=== PATIENT | male | born 1960 | race Caucasian/White ===

== ENCOUNTER → 2019-05-30 08:49 | Outpatient (BNVA) | payer MEDICARE, OTHER, SELFPAY | PROVIDERS: Family Provider Family Medicine; PCP Family Medicine; Visit Provider Anesthesiology | DX: M54.16 Radiculopathy, lumbar region (principal); M51.36 Other intervertebral disc degeneration, lumbar region; M79.651 Pain in right thigh; M79.652 Pain in left thigh; M54.2 Cervicalgia; Z79.891 Long term (current) use of opiate analgesic | CPT/HCPCS: 99214 ==

== ENCOUNTER 2019-07-04 08:01 | Outpatient (CLI) | payer MEDICARE, OTHER, SELFPAY ==
--- NOTE | 2019-07-04 08:20 | ECG_ITS ---
NAME OF STUDY: EXERCISE SESTAMIBI STRESS TEST INDICATION: Chest Pain, EXERCISE TREADMILL STRESS ORDERING PHYSICIAN: Lanie CLINICAL INFORMATION: Chest pain INTERPRETATION: 1. The patient exercised for 7 minutes and 48 seconds on a [place] protocol. He reached a maximum heart rate of 146 beats per minute, which is 90 % of his maximum predicted heart rate. The test was stopped due to achieving the desired heart rate. 2. The baseline electrocardiogram reveals sinus rhythm and is a normal tracing. 3. With exercise, there were no ST segment changes to suggest ischemia. 4. The resting blood pressure was 127/76. The maximum blood pressure was 182/77. 5. At maximum exercise, the patient achieved 7.9 METs with a double product of 217. 6. The patient experienced no chest pain or arrhythmias during the examination. CONCLUSION: 1. Normal exercise treadmill test. 2. Average exercise capacity for age. 3. Normal blood pressure response to exercise. 4. Nuclear imaging to follow Electronically Signed On 07-08-2019 18:30:46 CDT by Dex Dela Cruz M.D. [id number]
--- NOTE | 2019-07-04 08:21 | NMCV_ITS ---
NM marci perf SPECT r/s* [id number] José Antonio Acosta Age: 58 Gender: M : 1960 Exam Date: 07/04/2019 08:21 Ordering Phys: Dex Dela Cruz MD ([email or web address]) Technologist: CHAU Allred Exam Location: [facility] Indications: CHEST PAIN STRESS TEST Please see separate stress test report in [facility] for full findings IMAGE PROTOCOL Rest/Stress 1 Exercise Day Radiopharmaceutical Dose (mCi) Administration Site Administered by Rest: Tc-99m 10.9 IV CHAU Aponte Sestamibi Stress:Tc-99m 32.6 IV CHAU Aponte Sestamibi Rest: 04-Jul-2019 60 Discovery 630 Stress: 04-Jul-2019 30 Discovery 630 Radiopharmaceutical was injected at 86 % maximum heart rate. Images obtained in supine and prone position. SPECT RESULTS Technical Quality: Excellent Raw Data Analysis: Normal Image Corrections: No attenuation or motion correction applied Summed Stress Score: 0 Summed Rest Score: 1 Summed Difference Score: 0 PERFUSION FINDINGS SPECT images demonstrate homogeneous tracer distribution throughout the myocardium. FUNCTIONAL RESULTS (calculated via Gated SPECT) Stress Image LV EF (%): 74 Stress EDV (mL):99 TID: 1.02 Stress ESV (mL):26 FUNCTIONAL FINDINGS: The left ventricle is normal in size. Transient Ischemia Dilatation of 1. There is normal left ventricular systolic function. The left ventricular ejection fraction is normal with a value of 74%. There is normal left ventricular wall thickening. Normal end-diastolic and end-systolic volumes. IMPRESSIONS 1. Myocardial perfusion imaging is normal. 2. Overall left ventricular systolic function is normal without regional wall motion abnormalities. 3. The left ventricular ejection fraction is normal with a value of 74%. 4. This study suggests a low likelihood of angiographically significant coronary artery disease. 5. No prior similar studies to compare. Sophie Granado MD (Electronically Signed) Final Date: 07 July 2019 11:22 S
[2019-07-04 08:22] VITALS: BMI 27.1
[2019-07-04 10:07] VITALS: BP 160/76; PULSE 92
== END 2019-07-04 08:02 | disposition home or self-care (01) ==
LOC: CDL 08:02
PROVIDERS: Family Provider Family Medicine; PCP Family Medicine; Visit Provider Internal Medicine Cardiovascular Disease
DX: R07.9 Chest pain, unspecified (principal)
CPT/HCPCS: 78452; 93017; A9500

== ENCOUNTER 2019-10-08 06:00 | Outpatient (RCR) | payer MEDICARE, OTHER, SELFPAY | END 2019-10-28 23:59 | disposition home or self-care (01) | LOC: SPT 06:00 | PROVIDERS: PCP Family Medicine; Referring Provider Family Medicine; Visit Provider Family Medicine | DX: M25.561 Pain in right knee (principal) | CPT/HCPCS: 97110; 97161 ==

== ENCOUNTER → 2019-10-10 09:54 | Outpatient (BNVA) | payer MEDICARE, OTHER, SELFPAY | PROVIDERS: PCP Family Medicine; Visit Provider Anesthesiology | DX: M51.36 Other intervertebral disc degeneration, lumbar region (principal); M54.16 Radiculopathy, lumbar region; M54.2 Cervicalgia; Z79.891 Long term (current) use of opiate analgesic | CPT/HCPCS: 99214 ==

== ENCOUNTER → 2019-12-11 09:23 | Outpatient (BNVA) | payer MEDICARE, OTHER, SELFPAY | PROVIDERS: PCP Family Medicine; Visit Provider Anesthesiology | DX: M54.41 Lumbago with sciatica, right side (principal); M54.42 Lumbago with sciatica, left side; M51.36 Other intervertebral disc degeneration, lumbar region; M54.16 Radiculopathy, lumbar region; M54.2 Cervicalgia; M25.561 Pain in right knee; M25.562 Pain in left knee; Z79.891 Long term (current) use of opiate analgesic | CPT/HCPCS: 99214 ==

== ENCOUNTER 2019-12-22 17:40 | Emergency (ER) | payer MEDICARE, OTHER, SELFPAY ==
[2019-12-22 17:41] VITALS: BP 105/69; PULSE 66; RESP 18; TEMP 36.6; O2SAT 91; BMI 25.8
--- NOTE | 2019-12-22 17:57 | XRR_ITS ---
PROCEDURE INFORMATION: Exam: XR Chest, 1 View Exam date and time: 12/22/2019 6:16 PM Age: 59 years old Clinical indication: Chest pain; Type not specified; Additional info: Cp x 2 hours TECHNIQUE: Imaging protocol: XR of the chest Views: 1 view. Other technique: Frontal portable upright view of the chest. COMPARISON: CR Chest 1 [place] [id number] 05/29/2018 10:35 AM FINDINGS: Lungs: The lungs are clear bilaterally. The pulmonary vasculature is normal. Pleural space: No pleural effusion. No pneumothorax. Heart/Mediastinum: The heart is normal in size and contour. Mediastinum: Stable. Vasculature: Mild aortic arch atherosclerotic calcification without ectasia. Bones/joints: Healed bilateral rib fractures, stable. XR/XR chest 1V portable [id number] IMPRESSION: No acute cardiopulmonary abnormality identified.
--- NOTE | 2019-12-22 17:58 | ECG_ITS ---
[facility] Test Date: 2019-12-22 Pat Name: José Antonio Acsota Department: Room: Gender: Male Manager Bilingual: : 1960 Requested By: Gene Bellamy Order Number: [id number] Caro MD: Valerio Emmanuel M.D. Measurements Intervals [place] Rate: 62 P: 70 MD: 174 QRS: 41 QRSD: 85 T: 26 QT: 416 QTc: 423 Interpretive Statements SINUS RHYTHM Compared to ECG 05/29/2018 10:16:57 No significant changes Electronically Signed On 12-23-2019 17:24:59 CDT by Valerio Emmanuel M.D. [id number]
--- NOTE | 2019-12-22 18:04 | US_ITS ---
WS: [id number] ULTRASOUND ABDOMEN LIMITED CLINICAL INFORMATION: abd pain COMPARISON: None. FINDINGS: Liver Size: Normal. Craniocaudal length: 10.0 cm. Echogenicity: Normal. Surface nodularity: None. Mass (size and location): None. Bile ducts Intrahepatic ducts: Normal. Common bile duct diameter: 0.3 cm. Gallbladder Normal. Gallstones: None. Gallbladder sludge: None. Gallbladder wall thickening: None. Pericholecystic fluid: None. Sonographic Mcclure sign: Absent. Pancreas Normal as visualized. Right kidney: Normal. Hydronephrosis: None. Size: 10.9 cm x 5.3 cm x 5.2 cm. Abdominal aorta and IVC Visualized portions are normal. Ascites: None. US/US gall bladder [id number] IMPRESSION: Normal ultrasound
--- NOTE | 2019-12-22 18:05 | ED_ITS ---
HPI - Abdominal Pain General: Chief Complaint: Abdominal Pain Stated Complaint: ABDOMINAL AND CHEST PAIN Time Seen by Provider: 12/22/19 17:42 Source: patient and EMS Mode of arrival: EMS Limitations: no limitations History of Present Illness: HPI narrative: 59-year-old male he states he had eaten a dessert that set out for quite a while today started having epigastric abdominal pain is felt quite bloated. He states pain was severe in nature and rated it a 8 out of 10. He states he is also had issues with his gallbladder and was scheduled to have ultrasound but got canceled due to COVID. He denies any fevers. He states he did have one slight period of chest pain that was only for seconds. He feels improved after Zofran. Associated Symptoms: Reports nausea; Denies chills, dysuria and fever(s) Review of Systems Const: Denies: fever(s), chills, body aches or change in appetite Eyes: Denies: blurry vision or eye discomfort ENMT: Denies: throat pain or dental pain Card: Denies: chest pain Resp: Denies: dyspnea GI: Reports: abdominal pain and nausea : Denies: dysuria Musc: Denies: neck pain or back pain Skin/Breast: Denies: rash Neuro: Denies: headache(s) Psych: Denies: depression Jerson/Lymph: Denies: easy bruising All/Imm: Denies: urticaria PFSH ED PFSH: Medical History (Updated 12/22/19 @ 18:46 by Gene Bellamy MD) CAD (coronary artery disease) DDD (degenerative disc disease), lumbar Dyslipidemia Encounter for long-term use of opiate analgesic Knee pain, bilateral Lumbar radiculitis Lumbar spine pain Neck pain Opioid contract exists Surgical History S/P knee surgery right x2 S/P shoulder surgery left x2 Family History Other CAD (coronary artery disease) Social History Smoking and tobacco status: former smoker Second hand smoke exposure: No Alcohol intake: former Lives independently: Yes Marital status: service: No Current occupational status: disabled History of recent travel: No Current gender identity: Male Katty/Yazdanism: Voodoo Physical Exam Const: COMMON NORMALS: no acute distress, patient oriented x3 and healthy a ppearing HENMT: COMMON NORMALS: normocephalic and atraumatic HEAD & SCALP: normocephalic and atraumatic Eye: COMMON NORMALS: Equal, round and reactive pupils present and EOMs intact bilaterally PUPIL: Yes Equal, round and reactive pupils present Neck/C-Spine: COMMON NORMALS: full ROM and supple Chest: COMMONS NORMALS: normal inspection of the chest and normal palpation of entire chest wall Resp: COMMON NORMALS: normal respiratory effort, No retractions, No use of accessory muscles and clear to auscultation bilaterally AUSCULTATION: clear to auscultation bilaterally Cardio: COMMON NORMALS: regular rate, regular rhythm and No murmurs present (Cardio) RATE: regular rate RHYTHM: regular rhythm GI: COMMON NORMALS: Normal to inspection, nondistended, normoactive bowel sounds present, Soft to palpation, non-tender and no masses PALPATION: Yes Soft to palpation Extremity: COMMON NORMALS: normal to inspection and full ROM Neuro: COMMON NORMALS: patient oriented x3, moves all extremities and no focal motor deficits Psych: COMMON NORMALS: mental status grossly normal, Normal thought process present and cooperative THOUGHT PROCESS: Normal thought process present Skin: COMMON NORMALS: no rashes or lesions noted and no wounds GENERAL SKIN EXAM: no rashes or lesions noted Course Vital Signs: Vital signs: Vital Signs Temperature 97.8 F 12/22/19 17:41 Pulse Rate 66 12/22/19 17:41 Respiratory Rate 18 12/22/19 17:41 Blood Pressure 105/69 12/22/19 17:41 Pulse Oximetry 91 12/22/19 17:41 MDM - Abdominal Pain MDM Narrative: Medical decision making narrative: Patient presents abdominal pain is likely gastric or gas pains. After eating and his abdominal exam now is benign. Lab work here is normal and ultrasound is normal we will start him on Bentyl and he is to return if worsening. Lab Data: Labs: Lab Results 12/22/19 12/22/19 12/22/19 Range/Units 17:20 17:20 17:20 WBC 7.2 (4.0-10.0) 10^3/ uL RBC 4.75 (4.1-5.3) 10^6/u L Hgb 13.2 (11.7-16.6) g/dL Hct 42.7 (42.0-52.0) % MCV 89.9 (80-94) fL MCH 27.8 L (28.0-34.0) pg MCHC 30.9 (30.0-36.0) g/dL RDW 13.7 (12.1-15.1) % Plt Count 305 (130-400) 10^3/c mm MPV 10.6 H (7.4-10.4) fL Neut % (Auto) 57.5 % Lymph % (Auto) 33.5 % Douglas % (Auto) 6.6 % Eos % (Auto) 2.1 % Baso % (Auto) 0.3 % Neut # (Auto) 4.15 (1.8-7.7) 10^3/u L Lymph # (Auto) 2.4 (0.8-4.8) 10^3/u L Douglas # (Auto) 0.5 (0.2-0.9) 10^3/u L Eos # (Auto) 0.2 (0.0-0.8) 10^3/u L Baso # (Auto) 0.0 (0.0-0.1) 10^3/u L Nucleated RBC % (a uto) 0 % Nucleated RBCs # 0.0 /100WBC Sodium 139 (136-145) mmol/L Potassium 3.9 (3.5-5.1) mmol/L Chloride 101 (98-107) mmol/L Carbon Dioxide 27 (22-29) mmol/L Anion Gap 14.9 (5-19) BUN 18 (6-20) mg/dL Creatinine 0.9 (0.7-1.2) mg/dL GFR Calculation 86.4 L (90-130) mL/min Glucose 126 H (65-115) mg/dL Calculated Osmolal ity 286 (285-295) mOsm/k g Calcium 8.9 (8.5-10.5) mg/dL Total Bilirubin 0.6 (0.15-1.2) mg/dL AST 24 (0-40) U/L ALT 21 (0-41) U/L Alkaline Phosphata se 124 (40-130) IU/L Troponin T Baselin e 6 (0-15) ng/L Total Protein 6.4 L (6.6-8.7) g/dL Albumin 4.1 (3.5-5.2) g/dL Globulin 2.3 (1.3-4.6) g/dL Lipase 24 (13-60) U/L Imaging Data ^: US: Attestation: I personally reviewed and interpreted this imaging study as follows: My impression: no acute abnormality EKG Data ^: EKG 1: Attestation: I personally reviewed and interpreted this EKG as follows: EKG interpretation date: 12/22/19 EKG interpretation time: 18:03 Interpretation: nsr hr [address] or t wave abnormalities qrs 85 qtc 421 Discharge Plan Discharge Patient Disposition: Home Clinical Impression: Abdominal pain Qualifiers: Abdominal location: epigastric Qualified Code(s): R10.13 - Epigastric pain Condition: Stable Prescriptions: New dicyclomine 20 mg tablet 20 mg PO TID PRN (Reason: abdominal pain) Qty: 20 RF: 0 ondansetron 4 mg tablet,disintegrating 4 mg PO Q6H PRN (Reason: nausea and vomiting) Qty: 14 RF: 0 No Action atorvastatin 40 mg tablet 40 mg PO QDAY RF: 0 metoprolol tartrate 25 mg tablet 12.5 mg PO BID RF: 0 nitroglycerin [Nitrostat] 0.4 mg tablet, sublingual 0.4 mg SUBLINGUAL Q5M PRNRF: 0 isosorbide mononitrate 30 mg tablet extended release 24 hr 30 mg PO QAM RF: 0 ibuprofen 200 mg capsule 200 mg PO Q6H PRNRF: 0 diazepam 5 mg tablet 5 mg PO TID PRNRF: 0 trazodone 50 mg tablet 50 mg PO QDAY RF: 0 aspirin 325 mg tablet 325 mg PO QDAY RF: 0 pantoprazole 40 mg tablet,delayed release (DR/EC) 40 mg PO QDAY RF: 0 sucralfate 1 gram tablet 1 gm PO DAILY PRNRF: 0 methadone 10 mg tablet 20 mg PO Q8H 30 Days Qty: 180 RF: 0 methadone 10 mg tablet 20 mg PO Q8H 30 Days Qty: 180 RF: 0 oxycodone 10 mg tablet 10 mg PO TID PRN (Reason: pain) 30 Days Qty: 90 RF: 0 oxycodone 10 mg tablet 10 mg PO TID PRN (Reason: pain) 30 Days Qty: 90 RF: 0 Discharge Orders: Discharge Order (Routine); Ordered 12/22/19 Ordered By: Gene Bellamy Referrals: Keya Ayala MD [Primary Care Provider] - 1-3 days Discharge Diet: Advance as tolerated Discharge Activity: Resume usual activity Patient Instructions: Abdominal Pain (ED) Coding Level of Care Code ED Plater Supervisor for Chg Fwd Exam Comprehensive
[2019-12-22 18:06] LABS: Basophils % 0.3 %; Eosinophils # 0.2 10^3/uL (0.0-0.8); Eosinophils % 2.1 %; Hematocrit 42.7 % (42.0-52.0); Hemoglobin 13.2 g/dL (11.7-16.6); Lymphocytes # 2.4 10^3/uL (0.8-4.8); Lymphocytes % 33.5 %; Mean Corpuscular HGB Conc 30.9 g/dL (30.0-36.0); Mean Corpuscular Hemoglobin 27.8 pg (28.0-34.0); Mean Corpuscular Volume 89.9 fL (80-94); Mean Platelet Volume 10.6 fL (7.4-10.4); Monocytes # 0.5 10^3/uL (0.2-0.9); Monocytes % 6.6 %; Neutrophils # 4.15 10^3/uL (1.8-7.7); Neutrophils % 57.5 %; Nucleated Red Blood Cells % 0 %; Platelet Count 305 10^3/cmm (130-400); Red Blood Count 4.75 10^6/uL (4.1-5.3); Red Cell Distribution Width 13.7 % (12.1-15.1); White Blood Count 7.2 10^3/uL (4.0-10.0)
[2019-12-22 18:18] LABS: Alanine Aminotransferase 21 U/L (0-41); Albumin Level 4.1 g/dL (3.5-5.2); Alkaline Phosphatase 124 IU/L (40-130); Anion Gap 14.9 (5-19); Aspartate Amino Transferase 24 U/L (0-40); Blood Urea Nitrogen 18 mg/dL (6-20); Calcium 8.9 mg/dL (8.5-10.5); Carbon Dioxide 27 mmol/L (22-29); Chloride 101 mmol/L (98-107); Creatinine Clr Calc Pharmacy 92.7145; Globulin 2.3 g/dL (1.3-4.6); Glomerular Filtration Rate 86.4 mL/min (90-130); Glucose 126 mg/dL (65-115); Lipase 24 U/L (13-60); Osmolality Calculated 286 mOsm/kg (285-295); Potassium 3.9 mmol/L (3.5-5.1); Sodium 139 mmol/L (136-145); Total Bilirubin 0.6 mg/dL (0.15-1.2); Total Protein 6.4 g/dL (6.6-8.7)
[2019-12-22 18:19] LABS: Troponin(5th) Baseline 6 ng/L (0-15)
[2019-12-22] MEDS: sodium chloride 0.9% 1,000 ML 999 ML IV (18:45)
[2019-12-22 18:53] VITALS: BP 119/72; PULSE 67; RESP 18; O2SAT 95
== END 2019-12-22 18:54 | disposition home or self-care (01) ==
PROVIDERS: Emergency Provider Emergency Medicine; PCP Family Medicine
DX: R10.13 Epigastric pain (principal); Z79.82 Long term (current) use of aspirin; I25.10 Atherosclerotic heart disease of native coronary artery without angina pectoris; E78.5 Hyperlipidemia, unspecified; Z87.891 Personal history of nicotine dependence
CPT/HCPCS: 12345; 71045; 76705; 80053; 83690; 84484; 85025; 93005; 99281; 99283; J7030

== ENCOUNTER → 2019-12-25 07:53 | Outpatient (BNVA) | payer MEDICARE, OTHER, SELFPAY | PROVIDERS: PCP Family Medicine; Visit Provider Anesthesiology | DX: M25.561 Pain in right knee (principal); M25.562 Pain in left knee | CPT/HCPCS: 20610; 77002; 77003; J1030; J3490 ==

== ENCOUNTER 2020-02-02 15:59 | Emergency (ER) | payer MEDICARE, OTHER, SELFPAY ==
[2020-02-02 16:03] VITALS: BP 139/87; PULSE 62; RESP 18; TEMP 36.9; O2SAT 95; BMI 26.6
--- NOTE | 2020-02-02 16:09 | CTR_ITS ---
PROCEDURE INFORMATION: Exam: CT Head Without Contrast Exam date and time: 02/02/2020 4:16 PM Age: 59 years old Clinical indication: Injury or trauma; Other: Thrown from horse; Blunt trauma (contusions or hematomas) TECHNIQUE: Imaging protocol: Computed tomography of the head without contrast. Radiation optimization: All CT scans at this facility use at least one of these dose optimization techniques: automated exposure control; mA and/or kV adjustment per patient size (includes targeted exams where dose is matched to clinical indication); or iterative reconstruction. COMPARISON: CT head wo con* [id number] 07/18/2015 7:12 PM RADIATION DOSE METRICS: Total DLP (mGy-cm): 877.62 FINDINGS: Brain: Small amount of subarachnoid blood sulci of the superior right parietal lobe near the vertex. No abnormal attenuation in the brain parenchyma. No parenchymal hemorrhage. Cerebral ventricles: No ventriculomegaly. Bones/joints: Unremarkable. No acute fracture. Paranasal sinuses: The Circumferential mucosal thickening in the left maxillary sinus. The other sinuses are clear. Mastoid air cells: Visualized mastoid air cells are well aerated. Soft tissues: Unremarkable. CT/CT head wo con* [id number] IMPRESSION: 1. Small focus of subarachnoid hemorrhage in the superior right parietal region. This is consistent with trauma. 2. No fracture identified. Radiation Dose CTDIVOL = (mGy): DLP = 877.62 (mGy-cm)
--- NOTE | 2020-02-02 16:09 | CTR_ITS ---
PROCEDURE INFORMATION: Exam: CT Cervical Spine Without Contrast Exam date and time: 02/02/2020 4:16 PM Age: 59 years old Clinical indication: Injury or trauma; Other: Thrown from horse; Blunt trauma; Additional info: Fall, cerivcal spine point tenderness TECHNIQUE: Imaging protocol: Computed tomography images of the cervical spine without contrast. Radiation optimization: All CT scans at this facility use at least one of these dose optimization techniques: automated exposure control; mA and/or kV adjustment per patient size (includes targeted exams where dose is matched to clinical indication); or iterative reconstruction. COMPARISON: No relevant prior studies available. Attempts to retrieve the CT C-spine 07/29/2009 and MRI C-spine 12/05/2012 were unsuccessful. RADIATION DOSE METRICS: Total DLP (mGy-cm): 723.74 FINDINGS: Vertebrae: Leftward cervical curvature. There is mild anterior wedging of the C6 vertebral body. The other vertebral bodies maintain a normal stature. The facets are intact with mild degenerative changes. C2-C3: No significant disc protrusion. No severe spinal canal stenosis. No significant neural foraminal narrowing. C3-C4: No significant disc protrusion. No severe spinal canal stenosis. No significant neural foraminal narrowing. C4-C5: No significant disc protrusion. No severe spinal canal stenosis. No significant neural foraminal narrowing. C5-C6: No significant disc protrusion. No severe spinal canal stenosis. No significant neural foraminal narrowing. C6-C7: No significant disc protrusion. No severe spinal canal stenosis. No significant neural foraminal narrowing. C7-T1: No significant disc protrusion. No severe spinal canal stenosis. No significant neural foraminal narrowing. Soft tissues: The soft tissues are unremarkable. Specifically there are no soft tissue findings surrounding the C6 vertebral body. Lungs: Lung apices are normal. CT/CT cervical spin wo con* [id number] IMPRESSION: 1. No acute finding. 2. Mild anterior wedging of the C6 vertebral body is most likely a chronic finding. This is described on the MRI report 12/05/2012. Radiation Dose CTDIVOL = (mGy): DLP = 723.74 (mGy-cm)
--- NOTE | 2020-02-02 16:09 | XRR_ITS ---
PROCEDURE INFORMATION: Exam: XR Left Shoulder Exam date and time: 02/02/2020 5:08 PM Age: 59 years old Clinical indication: Injury or trauma; Other: Fall off horse; Blunt trauma (contusions or hematomas); Shoulder; Left; Injury date: 02/02/20; Prior surgery; Additional info: Left shoulder pain TECHNIQUE: Imaging protocol: XR Left shoulder. Views: 2 or more views. COMPARISON: CR Shoulder 2+ views LEFT* [id number] 01/09/2017 3:22 PM FINDINGS: Bones/joints: Old, healed left rib fractures. No acute fracture. No dislocation. Mild degenerative changes involving the acromioclavicular and glenohumeral joints. Soft tissues: No acute soft tissue abnormality. XR/XR shoulder LT min 2V* [id number] IMPRESSION: No acute osseous abnormality.
--- NOTE | 2020-02-02 16:09 | CTR_ITS ---
PROCEDURE INFORMATION: Exam: CT Chest Without Contrast Exam date and time: 02/02/2020 4:16 PM Age: 59 years old Clinical indication: Injury or trauma; Other: Thrown from horse; Generalized; Blunt trauma (contusions or hematomas); Prior surgery; Surgery type: Back TECHNIQUE: Imaging protocol: Computed tomography of the chest without contrast. Sagittal and coronal reformatted images were created and reviewed. Radiation optimization: All CT scans at this facility use at least one of these dose optimization techniques: automated exposure control; mA and/or kV adjustment per patient size (includes targeted exams where dose is matched to clinical indication); or iterative reconstruction. COMPARISON: CT chest wo con [id number] 07/18/2015 7:21:44 PM RADIATION DOSE METRICS: Total DLP (mGy-cm): 1274.06 FINDINGS: Limitations: Evaluation of the mediastinum and vasculature is limited without intravenous contrast. Lungs: Tracheobronchial structures are patent. Mild interstitial fibrotic changes in the periphery of the lungs, particularly the left upper lobe. These are mildly increased compared with the previous study. Patchy ground-glass opacification in the lateral right upper lobe. Calcified granuloma in the right lower lobe. Dependent atelectasis in the left lung. Pleural space: No pleural effusion. No pneumothorax. Heart: Stable mild enlargement of the heart. Moderate atherosclerotic calcification in the coronary arteries. Mediastinal space: No mediastinal hematoma. No pneumomediastinum. Small hiatal hernia. The esophagus is unremarkable. Aorta: Mild atherosclerotic changes in the visualized arteries. No evidence for aortic aneurysm. Other arteries: The pulmonary arteries are unremarkable. Lymph nodes: No lymphadenopathy. Partially calcified mediastinal and right hilar lymph nodes. Bones/joints: Stable old, healed fracture of the distal left clavicle. Stable old fractures of the right 2nd through 9th ribs and the left 2nd through 10th ribs. Multilevel degenerative changes of varying severity in the visualized spine. No acute fracture. Soft tissues: No acute abnormality in the extrathoracic soft tissues. No acute abnormality in the extrathoracic soft tissues. IMPRESSION: 1. Patchy ground-glass opacification in the lateral right upper lobe. The differential diagnosis includes pulmonary contusion versus the acute phase of interstitial lung disease. Recommend clinical correlation. 2. Mild interstitial fibrotic changes in the periphery of the lungs, particularly the left upper lobe. These are mildly increased compared with the previous study. 3. Small hiatal hernia. 4. Incidental/nonacute findings are listed in the report. PROCEDURE INFORMATION: Exam: CT Abdomen And Pelvis Without Contrast Exam date and time: 02/02/2020 4:16 PM Age: 59 years old Clinical indication: Injury or trauma; Other: Thrown from horse; Generalized; Blunt trauma (contusions or hematomas); Prior surgery; Surgery type: Back TECHNIQUE: Imaging protocol: Computed tomography of the abdomen and pelvis without contrast. Sagittal and coronal reformatted images were created and reviewed. Radiation optimization: All CT scans at this facility use at least one of these dose optimization techniques: automated exposure control; mA and/or kV adjustment per patient size (includes targeted exams where dose is matched to clinical indication); or iterative reconstruction. COMPARISON: CT chest wo con [id number] 07/18/2015 7:21:44 PM RADIATION DOSE METRICS: Total DLP (mGy-cm): 1274.06 FINDINGS: Limitations: Evaluation of solid organs and vasculature is limited without intravenous contrast. Liver: Stable simple cyst in the left lobe of the liver measuring 9.5 mm (series 3, image 16). Gallbladder and bile ducts: The gallbladder is unremarkable. No biliary ductal dilatation. Pancreas: Mild atrophy of the pancreatic parenchyma. No pancreatic ductal dilatation. Spleen: The spleen is unremarkable. Adrenals: The right and left adrenal glands are unremarkable. Kidneys and ureters: The right and left kidneys are unremarkable. The right and left ureters are unremarkable. Stomach and bowel: Small hiatal hernia. The stomach is collapsed, which can limit evaluation. No focal abnormality in the stomach otherwise. There are hyperdense foci in the 2nd portion of the duodenum. These may represent swallowed medications. No acute abnormality in the small bowel. Numerous diverticula in the sigmoid colon. No evidence for diverticulitis. Appendix: The appendix is visualized and is unremarkable. No findings to suggest acute appendicitis. Intraperitoneal space: No free intraperitoneal air. No ascites. No loculated fluid collections to suggest an abscess. Vasculature: Moderate atherosclerotic changes in the visualized arteries. No evidence for aortic aneurysm. Lymph nodes: No lymphadenopathy. Urinary bladder: Diffuse, mild wall thickening of the bladder. Reproductive: Nonspecific parenchymal calcifications in the prostate gland. Bones/joints: Moderate degenerative changes at both the right and left hips. There is partial fusion of the right and left sacroiliac joints, consistent with a remote episode of seronegative sacroiliitis versus sequela of degenerative change. Multilevel degenerative changes of varying severity in the visualized spine. Bone island in the proximal left femur. No acute fracture. Multilevel foraminal stenosis of varying severity in the lumbar spine. Soft tissues: No acute abnormality in the extra-abdominal soft tissues. CT/CT chest abd pel wo con IMPRESSION: 1. No evidence for acute traumatic injury in the abdomen or pelvis. 2. Diffuse, mild wall thickening of the bladder. In the correct clinical setting, this may suggest cystitis. Recommend correlation with laboratory findings. Alternatively, this may be secondary to chronic outlet obstruction. 3. Small hiatal hernia. 4. Sigmoid diverticulosis. No evidence for diverticulitis. 5. Incidental/nonacute findings are listed in the report. Radiation Dose CTDIVOL = (mGy): DLP = 1274.06~1274.06 (mGy-cm)
--- NOTE | 2020-02-02 16:14 | ED_ITS ---
HPI - Head Injury General: Chief complaint: Head Injury Stated complaint: HEAD, LEFT SHOULDER PAIN POST FALL FROM HORSE Time Seen by Provider: 02/02/20 16:09 History of Present Illness: HPI Narrative: 59-year-old male patient presents to the emergency department status post horse injury. He reports was trying to ride a horse and the horse threw him, bucked him off, he states landed on the ground, gravel road. He states did have positive loss of consciousness. EMS was called and transported him to the hospital. He is complaining of left side chest pain, left scapular pain and back pain. He reports pain in his left hip. Was able to stand and ambulate to the EMS cot. MD Complaint: head injury and fall Onset (ago): minute(s) (30) Arrival Conditions: C-spine immobilization present Mechanism of Injury: fall Place: home Loss of Consciousness: yes Location of injury: occipital Severity: moderate Severity scale (1-10): 6 Quality: stabbing and aching Other Injuries: chest (left) Context: on aspirin Associated symptoms: Reports neck pain and vertigo (with standing); Deny confusion, nausea or vomiting Review of Systems General: Reports: 10 or more systems reviewed and unremarkable except in HPI and below Const: Denies: fever(s), chills or diaphoresis Eyes: Denies: blurry vision or eye redness ENMT: Denies: throat pain, dental pain or disequilibrium Card: Denies: chest pain, palpitations or irregular heart rhythm Resp: Denies: dyspnea, productive cough, non-productive cough or wheezing GI: Denies: abdominal pain, nausea or vomiting : Denies: dysuria Musc: Reports: neck pain, back pain, extremity pain (left posterior shoulder) and limited range of motion (left shoulder) Skin/Breast: Denies: rash or pruritus Neuro: Reports: headache(s) and vertigo (with standing); Denies: confusion Jerson/Lymph: Denies: easy bruising PFS ED PFSH: Medical History (Updated 02/03/20 @ 12:26 by JANET Vieira) CAD (coronary artery disease) DDD (degenerative disc disease), lumbar Dyslipidemia Encounter for long-term use of opiate analgesic Knee pain, bilateral Lumbar radiculitis Lumbar spine pain Neck pain Opioid contract exists Surgical History S/P knee surgery right x2 S/P shoulder surgery left x2 Family History Other CAD (coronary artery disease) Social History Smoking and tobacco status: former smoker Second hand smoke exposure: No Alcohol intake: former Lives independently: Yes Marital status: service: No Current occupational status: disabled History of recent travel: No Current gender identity: Male Katty/Tenriism: Sikhism Physical Exam Const: COMMON NORMALS: patient oriented x3, healthy appearing and alert GENERAL APPEARANCE: cooperative and well hydrated NUTRITIONAL APPEARANCE: thin ORIENTATION/CONSCIOUSNESS: Yes awake, Yes oriented to person, Yes oriented to place and Yes oriented to time HENMT: COMMON NORMALS: normocephalic, TM's normal bilaterally, Normal external nose present, Normal nasal mucous membranes and turbinates present, moist oral mucous membranes and oropharynx normal HEAD & SCALP: normocephalic, contusion (Occipital, abrasion present) and scalp tenderness (To the abrasion) FACE & SINUS: normal facial exam, sinuses nontender and face symmetric NOSE: Normal external nose present and Normal nasal mucous membranes and turbinates present TYMPANIC MEMBRANE: TM's normal bilaterally MOUTH: Normal oral and palatal mucosa present THROAT: posterior oropharynx normal Eye: COMMON NORMALS: Equal, round and reactive pupils present and EOMs intact bilaterally GENERAL EYE: appearance normal, both eyes and all related st ructures PUPIL: Yes Equal, round and reactive pupils present, Yes pupil size - right Right pupil size (mm): 3 and Yes pupil size - left Left pupil size (mm): 3 Neck/C-Spine: COMMON NORMALS: no lymphadenopathy GENERAL: Yes normal visual inspection and Yes trachea midline CERVICAL SPINE: Yes cervical ROM normal, Yes pain with cervical ROM, Yes Cervical spine tenderness C3, C4, C5 and C6, Yes Paracervical muscle tenderness left and Yes Trapezius muscle tenderness left Lymph: LYMPHATIC: no lymphadenopathy noted Chest: COMMONS NORMALS: normal inspection of the chest CHEST: Yes localized rib tenderness with anteroposterior compression Location: 4th rib, 5th rib, 6th rib, 7th rib and 8th rib and Yes tenderness (On the left) Resp: COMMON NORMALS: normal respiratory effort and clear to auscultation bilaterally AUSCULTATION: clear to auscultation bilaterally Cardio: COMMON NORMALS: regular rhythm, S1 normal heart sound present, S2 normal heart sound present and Peripheral pulses 2+ throughout RHYTHM: re gular rhythm HEART SOUNDS: S1 normal heart sound present and S2 normal heart sound present PERIPHERAL PULSES: Peripheral pulses 2+ throughout GI: COMMON NORMALS: Normal to inspection, nondistended, normoactive bowel sounds present and Soft to palpation INSPECTION: Yes normal to inspection, No abdominal wall ecchymosis and No Abdominal wall edema AUSCULTATION: Yes normoactive bowel sounds PALPATION: Yes Soft to palpation and Yes Tenderness to palpation present (GI) (Left-sided CVA tenderness) : COMMON NORMALS: Yes no CVA tenderness BLADDER/KIDNEY EXAM: Yes no CVA tenderness and Yes CVA tenderness Back/Pelvis: COMMON NORMALS: no CVA tenderness GENERAL BACK: Yes CVA tenderness CVA tenderness: left THORACIC SPINE/UPPER BACK: Yes ROM limited, Yes thoracic spinal tenderness and Yes paraspinal muscle tenderness LUMBAR SPINE/LOWER BACK: Yes ROM limited, Yes lumbar spinal tenderness, Yes paraspinal muscle tenderness and Yes straight leg raise positive left PELVIS: Yes no pain with lateral compression, Yes sciatic notch tenderness and Yes Other pelvic findings (Contusion noted over the iliac crest) COCCYX: Other pelvic findings (Contusion noted over the iliac crest) Extremity: COMMON NORMALS: normal to inspection and capillary refill normal GENERAL: Yes normal exam except as noted LEFT UPPER EXTREMITY: Yes shoulder joint Left shoulder joint: Yes inspection (normal), Yes palpation and Yes ROM (limited secondary to pain) Neuro: COMMON NORMALS: patient oriented x3 and no focal motor deficits SENSORIUM/ORIENTATION: Yes alert, Yes oriented to person, Yes oriented to place and Yes oriented to time Psych: COMMON NORMALS: mental status grossly normal, Normal thought process present and cooperative ACTIVITY/MOTOR BEHAVIOR: Yes appropriate eye contact THOUGHT PROCESS: Normal thought process present Skin: COMMON NORMALS: no rashes or lesions noted and turgor normal GENERAL SKIN EXAM: no rashes or lesions noted and turgor normal Course ED course: 59-year-old male patient presents to the emergency department after horse injury, thrown from a horse, CT head revealed right superior parietal small subarachnoid bleed, patient on anticoagulation, aspirin daily. Dre Coma Scale remained 15, ER physician Dr. Gunderson evaluated patient agrees with need to transfer to higher level of care for neurosurgery/trauma evaluation, case discussed and no new orders. [facility] in [facility] in [place] currently on divert. ER to ER transfer with , Dr Ramirez accepted. Case discussed with the patient and family. Verbalized understanding with need to transfer due to findings and consents to transfer. Consultations: Consultation #1: Dr Arias at -Case discussed with subarachnoid bleed appreciated right superior parietal -neurosurgery/trauma not available here. Agrees to accept patient Time: 17:40 Vital Signs: Vital signs: Vital Signs Temperature 98.4 F 02/02/20 16:03 Pulse Rate 63 02/02/20 18:10 Respiratory Rate 16 02/02/20 18:10 Blood Pressure 131/83 02/02/20 18:10 Pulse Oximetry 98 02/02/20 18:10 MDM - Head Injury Lab Data: Labs: Lab Results 02/02/20 02/02/20 Range/Units 15:35 15:35 WBC 6.2 (4.0-10.0) 10^3/ uL RBC 4.94 (4.1-5.3) 10^6/u L Hgb 13.7 (11.7-16.6) g/dL Hct 44.4 (42.0-52.0) % MCV 89.9 (80-94) fL MCH 27.7 L (28.0-34.0) pg MCHC 30.9 (30.0-36.0) g/dL RDW 13.3 (12.1-15.1) % Plt Count 269 (130-400) 10^3/c mm MPV 9.8 (7.4-10.4) fL Neut % (Auto) 53.0 % Lymph % (Auto) 35.7 % [place] % (Auto) 8.1 % Eos % (Auto) 2.4 % Baso % (Auto) 0.6 % Neut # (Auto) 3.26 (1.8-7.7) 10^3/u L Lymph # (Auto) 2.2 (0.8-4.8) 10^3/u L [place] # (Auto) 0.5 (0.2-0.9) 10^3/u L Eos # (Auto) 0.2 (0.0-0.8) 10^3/u L Baso # (Auto) 0.0 (0.0-0.1) 10^3/u L Nucleated RBC % (a uto) 0 % Nucleated RBCs # 0.0 /100WBC Sodium 144 (136-145) mmol/L Potassium 4.0 (3.5-5.1) mmol/L Chloride 104 (98-107) mmol/L Carbon Dioxide 27 (22-29) mmol/L Anion Gap 17.0 (5-19) BUN 17 (6-20) mg/dL Creatinine 0.9 (0.7-1.2) mg/dL GFR Calculation 86.4 L (90-130) mL/min Glucose 123 H (65-115) mg/dL Calculated Osmolal ity 301 H (285-295) mOsm/k g Calcium 9.5 (8.5-10.5) mg/dL Total Bilirubin 0.3 (0.15-1.2) mg/dL AST 23 (0-40) U/L ALT 20 (0-41) U/L Alkaline Phosphata se 128 (40-130) IU/L Total Protein 6.6 (6.6-8.7) g/dL Albumin 4.0 (3.5-5.2) g/dL Globulin 2.6 (1.3-4.6) g/dL Imaging Data^: Other Imaging: Radiologist's impression: [place] [address] CT Scan Report Signed Patient: José Antonio Acosta Unit #: [id number] : 1960 Age/Sex: 59 / M ADM Date: 02/02/20 Loc: ER Room/Bed: Attending Dr: Ordering Provider/Ordering MD: Ghislaine Quick Date of Service: 02/02/20 Procedure(s): CT cervical spin wo con* [id number] Accession Number(s): [id number] Report Number: [id number] PROCEDURE INFORMATION: Exam: CT Cervical Spine Without Contrast Exam date and time: 02/02/2020 4:16 PM Age: 59 years old Clinical indication: Injury or trauma; Other: Thrown from horse; Blunt trauma; Additional info: Fall, cerivcal spine point tenderness TECHNIQUE: Imaging protocol: Computed tomography images of the cervical spine without contrast. Radiation optimization: All CT scans at this facility use at least one of these dose optimization techniques: automated exposure control; mA and/or kV adjustment per patient size (includes targeted exams where dose is matched to clinical indication); or iterative reconstruction. COMPARISON: No relevant prior studies available. Attempts to retrieve the CT C-spine 07/29/2009 and MRI C-spine 12/05/2012 were unsuccessful. RADIATION DOSE METRICS: Total DLP (mGy-cm): 723.74 FINDINGS: Vertebrae: Leftward cervical curvature. There is mild anterior wedging of the C6 vertebral body. The other vertebral bodies maintain a normal stature. The facets are intact with mild degenerative changes. C2-C3: No significant disc protrusion. No severe spinal canal stenosis. No significant neural foraminal narrowing. C3-C4: No significant disc protrusion. No severe spinal canal stenosis. No significant neural foraminal narrowing. C4-C5: No significant disc protrusion. No severe spinal canal stenosis. No significant neural foraminal narrowing. C5-C6: No significant disc protrusion. No severe spinal canal stenosis. No significant neural foraminal narrowing. C6-C7: No significant disc protrusion. No severe spinal canal stenosis. No significant neural foraminal narrowing. C7-T1: No significant disc protrusion. No severe spinal canal stenosis. No significant neural foraminal narrowing. Soft tissues: The soft tissues are unremarkable. Specifically there are no soft tissue findings surrounding the C6 vertebral body. Lungs: Lung apices are normal. CT/CT cervical spin wo con* [id number] IMPRESSION: 1. No acute finding. 2. Mild anterior wedging of the C6 vertebral body is most likely a chronic finding. This is described on the MRI report 12/05/2012. Radiation Dose CTDIVOL = (mGy): DLP = 723.74 (mGy-cm) Dictated By: Valente De La Torre Signed By: Valente De La Torre Signed Date/Time: 02/02/201740 DD/ 38 CT Abd/Pel: Radiologist's impression: [address] [place] [address] CT Scan Report Signed with Lon Patient: José Antonio Acosta Unit #: [id number] : 1960 Age/Sex: 59 / M ADM Date: 02/02/20 Loc: ER Room/Bed: Attending Dr: Ordering Provider/Ordering MD: Ghislaine Quick Date of Service: 02/02/20 Procedure(s): CT chest abd pel wo con Accession Number(s): [id number] Report Number: [id number]/CT chest abd pel wo con Comparison CT scan of the abdomen/pelvis dated 07/29/2009 is now available. Prostate calcification is stable. Sigmoid diverticulosis is stable. Small hiatal hernia is stable. Degenerative changes in the sacroiliac joints and hips are stable. Degenerative changes in the spine have increased at multiple levels. Radiation Dose CTDIVOL = (mGy): DLP = 1274.06 1274.06 (mGy-cm) Addendum Dictated By: Chica Gaspar MD Addendum Signed By: Chica Gaspar MD Signed Date/Time: 02/02/20 174 Addendum Cosigned By: PROCEDURE INFORMATION: Exam: CT Chest Without Contrast Exam date and time: 02/02/2020 4:16 PM Age: 59 years old Clinical indication: Injury or trauma; Other: Thrown from horse; Generalized; Blunt trauma (contusions or hematomas); Prior surgery; Surgery type: Back TECHNIQUE: Imaging protocol: Computed tomography of the chest without contrast. Sagittal and coronal reformatted images were created and reviewed. Radiation optimization: All CT scans at this facility use at least one of these dose optimization techniques: automated exposure control; mA and/or kV adjustment per patient size (includes targeted exams where dose is matched to clinical indication); or iterative reconstruction. COMPARISON: CT chest wo con [id number] 07/18/2015 7:21:44 PM RADIATION DOSE METRICS: Total DLP (mGy-cm): 1274.06 FINDINGS: Limitations: Evaluation of the mediastinum and vasculature is limited without intravenous contrast. Lungs: Tracheobronchial structures are patent. Mild interstitial fibrotic changes in the periphery of the lungs, particularly the left upper lobe. These are mildly increased compared with the previous study. Patchy ground-glass opacification in the lateral right upper lobe. Calcified granuloma in the right lower lobe. Dependent atelectasis in the left lung. Pleural space: No pleural effusion. No pneumothorax. Heart: Stable mild enlargement of the heart. Moderate atherosclerotic calcification in the coronary arteries. Mediastinal space: No mediastinal hematoma. No pneumomediastinum. Small hiatal hernia. The esophagus is unremarkable. Aorta: Mild atherosclerotic changes in the visualized arteries. No evidence for aortic aneurysm. Other arteries: The pulmonary arteries are unremarkable. Lymph nodes: No lymphadenopathy. Partially calcified mediastinal and right hilar lymph nodes. Bones/joints: Stable old, healed fracture of the distal left clavicle. Stable old fractures of the right 2nd through 9th ribs and the left 2nd through 10th ribs. Multilevel degenerative changes of varying severity in the visualized spine. No acute fracture. Soft tissues: No acute abnormality in the extrathoracic soft tissues. No acute abnormality in the extrathoracic soft tissues. IMPRESSION: 1. Patchy ground-glass opacification in the lateral right upper lobe. The differential diagnosis includes pulmonary contusion versus the acute phase of interstitial lung disease. Recommend clinical correlation. 2. Mild interstitial fibrotic changes in the periphery of the lungs, particularly the left upper lobe. These are mildly increased compared with the previous study. 3. Small hiatal hernia. 4. Incidental/nonacute findings are listed in the report. PROCEDURE INFORMATION: Exam: CT Abdomen And Pelvis Without Contrast Exam date and time: 02/02/2020 4:16 PM Age: 59 years old Clinical indication: Injury or trauma; Other: Thrown from horse; Generalized; Blunt trauma (contusions or hematomas); Prior surgery; Surgery type: Back TECHNIQUE: Imaging protocol: Computed tomography of the abdomen and pelvis without contrast. Sagittal and coronal reformatted images were created and reviewed. Radiation optimization: All CT scans at this facility use at least one of these dose optimization techniques: automated exposure control; mA and/or kV adjustment per patient size (includes targeted exams where dose is matched to clinical indication); or iterative reconstruction. COMPARISON: CT chest con [id number] 07/18/2015 7:21:44 PM RADIATION DOSE METRICS: Total DLP (mGy-cm): 1274.06 FINDINGS: Limitations: Evaluation of solid organs and vasculature is limited without intravenous contrast. Liver: Stable simple cyst in the left lobe of the liver measuring 9.5 mm (series 3, image 16). Gallbladder and bile ducts: The gallbladder is unremarkable. No biliary ductal dilatation. Pancreas: Mild atrophy of the pancreatic parenchyma. No pancreatic ductal dilatation. Spleen: The spleen is unremarkable. Adrenals: The right and left adrenal glands are unremarkable. Kidneys and ureters: The right and left kidneys are unremarkable. The right and left ureters are unremarkable. Stomach and bowel: Small hiatal hernia. The stomach is collapsed, which can limit evaluation. No focal abnormality in the stomach otherwise. There are hyperdense foci in the 2nd portion of the duodenum. These may represent swallowed medications. No acute abnormality in the small bowel. Numerous diverticula in the sigmoid colon. No evidence for diverticulitis. Appendix: The appendix is visualized and is unremarkable. No findings to suggest acute appendicitis. Intraperitoneal space: No free intraperitoneal air. No ascites. No loculated fluid collections to suggest an abscess. Vasculature: Moderate atherosclerotic changes in the visualized arteries. No evidence for aortic aneurysm. Lymph nodes: No lymphadenopathy. Urinary bladder: Diffuse, mild wall thickening of the bladder. Reproductive: Nonspecific parenchymal calcifications in the prostate gland. Bones/joints: Moderate degenerative changes at both the right and left hips. There is partial fusion of the right and left sacroiliac joints, consistent with a remote episode of seronegative sacroiliitis versus sequela of degenerative change. Multilevel degenerative changes of varying severity in the visualized spine. Bone island in the proximal left femur. No acute fracture. Multilevel foraminal stenosis of varying severity in the lumbar spine. Soft tissues: No acute abnormality in the extra-abdominal soft tissues. CT/CT chest abd pel wo con IMPRESSION: 1. No evidence for acute traumatic injury in the abdomen or pelvis. 2. Diffuse, mild wall thickening of the bladder. In the correct clinical setting, this may suggest cystitis. Recommend correlation with laboratory findings. Alternatively, this may be secondary to chronic outlet obstruction. 3. Small hiatal hernia. 4. Sigmoid diverticulosis. No evidence for diverticulitis. 5. Incidental/nonacute findings are listed in the report. Radiation Dose CTDIVOL = (mGy): DLP = 1274.06 1274.06 (mGy-cm) Dictated By: Chica Gaspar MD Signed By: Chica Gaspar MD Signed Date/Time: 02/02/201740 DD/ 1739 CT Head: Radiologist's impression: [address] [place] [address] CT Scan Report Signed with Addlars Patient: José Antonio Acosta Unit #: [id number] : 1960 Age/Sex: 59 / M ADM Date: 02/02/20 Loc: ER Room/Bed: Attending Dr: Ordering Provider/Ordering MD: Ghislaine Quick Date of Service: 02/02/20 Procedure(s): CT head wo con* [id number] Accession Number(s): [id number] Report Number: [id number]/CT head wo con* [id number] THIS REPORT CONTAINS FINDINGS THAT MAY BE CRITICAL TO PATIENT CARE. The findings were verbally communicated via telephone conference with Ghislaine Quick at 5:23 PM CDT on 02/02/2020. The findings were acknowledged and understood. Radiation Dose CTDIVOL = (mGy): DLP = 877.62 (mGy-cm) Addendum Dictated By: Valente De La Torre Addendum Signed By: Valente De La Torre Signed Date/Time: 02/02/20 1 725 Addendum Cosigned By: PROCEDURE INFORMATION: Exam: CT Head Without Contrast Exam date and time: 02/02/2020 4:16 PM Age: 59 years old Clinical indication: Injury or trauma; Other: Thrown from horse; Blunt trauma (contusions or hematomas) TECHNIQUE: Imaging protocol: Computed tomography of the head without contrast. Radiation optimization: All CT scans at this facility use at least one of these dose optimization techniques: automated exposure control; mA and/or kV adjustment per patient size (includes targeted exams where dose is matched to clinical indication); or iterative reconstruction. COMPARISON: CT head wo con* [id number] 07/18/2015 7:12 PM RADIATION DOSE METRICS: Total DLP (mGy-cm): 877.62 FINDINGS: Brain: Small amount of subarachnoid blood sulci of the superior right parietal lobe near the vertex. No abnormal attenuation in the brain parenchyma. No parenchymal hemorrhage. Cerebral ventricles: No ventriculomegaly. Bones/joints: Unremarkable. No acute fracture. Paranasal sinuses: The Circumferential mucosal thickening in the left maxillary sinus. The other sinuses are clear. Mastoid air cells: Visualized mastoid air cells are well aerated. Soft tissues: Unremarkable. CT/CT head wo con* [id number] IMPRESSION: 1. Small focus of subarachnoid hemorrhage in the superior right parietal region. This is consistent with trauma. 2. No fracture identified. Radiation Dose CTDIVOL = (mGy): DLP = 877.62 (mGy-cm) Dictated By: Valente De La Torre Signed By: Valente De La Torre Signed Date/Time: 02/02/201721 DD/ 19 Discharge Plan Discharge Patient Disposition: Transfer to ED Clinical Impression: Subarachnoid hemorrhage following injury Qualifiers: Encounter type: initial encounter Loss of consciousness presence/duration: with LOC of 30 min or less Qualified Code(s): S06.6X1A - Traumatic subarachnoid hem orrhage with loss of consciousness of 30 minutes or less, initial encounter Prescriptions: No Action atorvastatin 40 mg tablet 40 mg PO DAILY RF: 0 nitroglycerin [Nitrostat] 0.4 mg tablet, sublingual 0.4 mg SUBLINGUAL Q5M PRN (Reason: Chest Pain) RF: 0 isosorbide mononitrate 30 mg tablet extended release 24 hr See Rx Instructions .ROUTE .COMPLEX RF: 0 ibuprofen 200 mg capsule 600 mg PO PRN RF: 0 diazepam 5 mg tablet 5 mg PO TID PRN (Reason: unknown) RF: 0 trazodone 50 mg tablet 50 - 100 mg PO BEDTIME RF: 0 aspirin 325 mg tablet 325 mg PO DAILY RF: 0 pantoprazole 40 mg tablet,delayed release (DR/EC) 40 mg PO BID RF: 0 sucralfate 1 gram tablet 1 gm PO PRN RF: 0 methadone 10 mg tablet 20 mg PO Q8H 30 Days Qty: 180 RF: 0 oxycodone 10 mg tablet 10 mg PO TID PRN (Reason: pain) 30 Days Qty: 90 RF: 0 dicyclomine 20 mg tablet 20 mg PO TID PRN (Reason: abdominal pain) Qty: 20 RF: 0 ondansetron 4 mg tablet,disintegrating 4 mg PO Q6H PRN (Reason: nausea and vomiting) Qty: 14 RF: 0 Miralax 17 gram Powder In Packet 17 g PO DAILY RF: 0 metoprolol succinate 25 mg tablet extended release 24 hr 12.5 mg PO DAILY RF: 0 escitalopram oxalate 10 mg tablet 10 mg PO DAILY RF: 0 Campos Stool Softner 1 - 2 cap PO PRN RF: 0 Referrals: Keya Ayala MD [Primary Care Provider] - Interventions: ED Discharge Assessment Last Done: 02/02/20 18:10 ED Charges Last Done: 02/02/20 18:10 Discharge Date/Time: 02/02/20 18:50 Coding Level of Care Code ED Patient Assistant for Chg Fwd Exam Comprehensive
[2020-02-02 16:26] LABS: Basophils % 0.6 %; Eosinophils # 0.2 10^3/uL (0.0-0.8); Eosinophils % 2.4 %; Hematocrit 44.4 % (42.0-52.0); Hemoglobin 13.7 g/dL (11.7-16.6); Lymphocytes # 2.2 10^3/uL (0.8-4.8); Lymphocytes % 35.7 %; Mean Corpuscular HGB Conc 30.9 g/dL (30.0-36.0); Mean Corpuscular Hemoglobin 27.7 pg (28.0-34.0); Mean Corpuscular Volume 89.9 fL (80-94); Mean Platelet Volume 9.8 fL (7.4-10.4); Monocytes # 0.5 10^3/uL (0.2-0.9); Monocytes % 8.1 %; Neutrophils # 3.26 10^3/uL (1.8-7.7); Nucleated Red Blood Cells % 0 %; Platelet Count 269 10^3/cmm (130-400); Red Blood Count 4.94 10^6/uL (4.1-5.3); Red Cell Distribution Width 13.3 % (12.1-15.1); White Blood Count 6.2 10^3/uL (4.0-10.0)
[2020-02-02] MEDS: ondansetron 2 mg/ML SDV 2 mL 4 MG IVP (16:35)
[2020-02-02 16:37] VITALS: RESP 18
[2020-02-02] MEDS: morphine 4 mg/mL SDV 1 mL 2 MG IVP (16:37)
[2020-02-02] MEDS: tetanus-dipt-pertussis 0.5 mL SDV IM (16:38)
[2020-02-02 16:45] LABS: Alanine Aminotransferase 20 U/L (0-41); Alkaline Phosphatase 128 IU/L (40-130); Blood Urea Nitrogen 17 mg/dL (6-20); Calcium 9.5 mg/dL (8.5-10.5); Carbon Dioxide 27 mmol/L (22-29); Chloride 104 mmol/L (98-107); Globulin 2.6 g/dL (1.3-4.6); Glomerular Filtration Rate 86.4 mL/min (90-130); Glucose 123 mg/dL (65-115); Osmolality Calculated 301 mOsm/kg (285-295); Sodium 144 mmol/L (136-145); Total Bilirubin 0.3 mg/dL (0.15-1.2); Total Protein 6.6 g/dL (6.6-8.7)
[2020-02-02 16:47] LABS: Aspartate Amino Transferase 23 U/L (0-40)
[2020-02-02 18:00] VITALS: BP 131/83; PULSE 103; RESP 16; O2SAT 98
[2020-02-02 18:10] VITALS: BP 131/83; PULSE 63; RESP 16; O2SAT 98
== END 2020-02-02 18:50 ==
PROVIDERS: Emergency Provider Nurse Practitioner Family; PCP Family Medicine
DX: S06.6X1A Traumatic subarachnoid hemorrhage with loss of consciousness of 30 minutes or less, initial encounter (principal); Z79.82 Long term (current) use of aspirin; I25.10 Atherosclerotic heart disease of native coronary artery without angina pectoris; E78.5 Hyperlipidemia, unspecified; Z87.891 Personal history of nicotine dependence; V80.919A Animal-rider injured in unspecified transport accident, initial encounter; Z23 Encounter for immunization; S00.01XA Abrasion of scalp, initial encounter
CPT/HCPCS: 12345; 70450; 71250; 72125; 73030; 74176; 80053; 85025; 90471; 90715; 96374; 96375; 99283; 99285; J2270; J2405

== ENCOUNTER → 2020-02-10 09:04 | Outpatient (BNVA) | payer MEDICARE, OTHER, SELFPAY | PROVIDERS: PCP Family Medicine; Visit Provider Anesthesiology | DX: M51.36 Other intervertebral disc degeneration, lumbar region (principal); M54.16 Radiculopathy, lumbar region; M54.2 Cervicalgia; Z79.891 Long term (current) use of opiate analgesic | CPT/HCPCS: 99213; 99214 ==

== ENCOUNTER 2020-02-24 00:27 | Emergency (ER) | payer MEDICARE, OTHER, SELFPAY ==
[2020-02-24 00:31] VITALS: BP 159/79; PULSE 75; RESP 17; TEMP 36.7; O2SAT 98; BMI 25.8
--- NOTE | 2020-02-24 00:44 | XR_ITS ---
WS: [id number] Exam: XR shoulder RT min 2V* [id number] Date/Time of Exam: 02/24/2020 12:44 AM Reason For Exam: fall Comparison 07/18/2015. No acute fracture noted. There is separation of the AC joint. High riding humeral head probably indic ates long-standing tear of the rotator cuff. Normal soft tissues. Numerous old right-sided rib fractu res noted. XR/XR shoulder RT min 2V* [id number] IMPRESSION: 1. AC joint separation. 2. No fracture. 3. High riding humeral head which might be seen with long-standing tear of the rotator cuff.
--- NOTE | 2020-02-24 00:45 | XR_ITS ---
WS: [id number] Exam: XR lumbar spine 2-3V* [id number] Date/Time of Exam: 02/24/2020 12:45 AM Reason For Exam: fall No acute fracture or dislocation. Degenerative disc change at L5-S1. Facet DJD at all levels. Spondyl osis noted. DJD of the SI joints. XR/XR lumbar spine 2-3V* [id number] IMPRESSION: 1. No acute fracture or malalignment. 2. Degenerative changes.
--- NOTE | 2020-02-24 00:48 | ED_ITS ---
HPI - Fall General: Chief Complaint: Fall Stated Complaint: fall right shoulder injury Time Seen by Provider: 02/24/20 00:39 History of Present Illness: HPI Narrative: pt fell at 1400 today landing on right shoulder, says it is hurting worse now, also says he thinks he jammed his back with fall. Thoracic spine is tender he says. Takes 3 oxy a day and 2 methadones. MD complaint: fall Onset (ago): hour(s) Fall from: standing Fall witnessed: no Place fall occurred: home Loss of consciousness: None Prolonged down time: no Symptoms prior to fall: none Context: tripped/slipped Location of injury: back Location of injury - extremities: Right: shoulder Severity: moderate Severity scale (1-10): 5 Quality: aching Associated symptoms-after fall: Reports no associated symptoms; Denies abdominal pain, chest pain or headache(s) Review of Systems Const: Denies: fever(s), chills or body aches Eyes: Denies: change in vision or blurry vision ENMT: Denies: throat pain or nasal congestion Card: Denies: chest pain or dyspnea on exertion Resp: Denies: dyspnea, productive cough or non-productive cough GI: Denies: abdominal pain, nausea or vomiting : Denies: difficulty urinating Musc: Reports: back pain and joint pain; Denies: extremity pain Skin/Breast: Denies: rash Neuro: Denies: headache(s) Psych: Denies: anxiety or depression Jerson/Lymph: Denies: easy bruising PFSH ED PFSH: Medical History (Updated 02/24/20 @ 01:58 by COREY Solano) CAD (coronary artery disease) DDD (degenerative disc disease), lumbar Dyslipidemia Encounter for long-term use of opiate analgesic Knee pain, bilateral Lumbar radiculitis Lumbar spine pain Neck pain Opioid contract exists Surgical History S/P knee surgery right x2 S/P shoulder surgery left x2 Family History Other CAD (coronary artery disease) Social History (Updated 02/10/20 @ 09:18 by Essie Dutton LPN) Smoking and tobacco status: former smoker Second hand smoke exposure: No Alcohol intake: former Lives independently: Yes Marital status: service: No Current occupational status: disabled History of recent travel: No Current gender identity: Male Katty/Jehovah'[employer] Witness: [employer] Physical Exam Const: COMMON NORMALS: no acute distress, average body habitus and patient oriented x3 HENMT: COMMON NORMALS: normocephalic HEAD & SCALP: normal to inspection and normocephalic FACE & SINUS: normal facial exam Eye: COMMON NORMALS: conjunctivae normal GENERAL EYE: appearance normal, both eyes and all related structures CONJUNCTIVA: Yes conjunctivae normal Neck/C-Spine: COMMON NORMALS: no JVD Chest: COMMONS NORMALS: normal inspection of the chest Resp: COMMON NORMALS: normal respiratory effort and clear to auscultation bilaterally AUSCULTATION: clear to auscultation bilaterally Cardio: COMMON NORMALS: no JVD, regular rate and regular rhythm RATE: regular rate RHYTHM: regular rhythm GI: COMMON NORMALS: Normal to inspection, nondistended, normoactive bowel sounds present : COMMON NORMALS: Yes no CVA tenderness BLADDER/KIDNEY EXAM: Yes no CVA tenderness Back/Pelvis: COMMON NORMALS: no CVA tenderness THORACIC SPINE/UPPER BACK: Yes thoracic ROM normal LUMBAR SPINE/LOWER BACK: Yes normal to inspection Extremity: COMMON NORMALS: normal to inspection RIGHT UPPER EXTREMITY: Yes shoulder joint (tender to superior aspect, pain with rom, can't lift arm much due to pain) Right shoulder: Yes Right shoulder joint neurovascular exam (intact) Neuro: COMMON NORMALS: patient oriented x3 Course Vital Signs: Vital signs: Vital Signs Temperature 98.0 F 02/24/20 00:31 Pulse Rate 78 02/24/20 01:04 Respiratory Rate 18 02/24/20 01:04 Blood Pressure 142/88 02/24/20 01:04 Pulse Oximetry 97 02/24/20 01:04 MDM - Fall MDM Narrative: Medical decision making narrative: reviewed xrays and case with Elin Gill Discharge Plan Discharge Patient Disposition: Home Clinical Impression: AC separation, type 2 Qualifiers: Encounter type: initial encounter Laterality: right Qualified Code(s): S43.101A - Unspecified dislocation of right acromioclavicular joint, initial encounter Back pain Qualifiers: Back pain location: low back pain Chronicity: chronic Back pain laterality: bilateral Sciatica presence: without sciatica Qualified Code(s): M54.5 - Low back pain Condition: Stable Prescriptions: No Action atorvastatin 40 mg tablet 40 mg PO DAILY RF: 0 nitroglycerin [Nitrostat] 0.4 mg tablet, sublingual 0.4 mg SUBLINGUAL Q5M PRN (Reason: Chest Pain) RF: 0 isosorbide mononitrate 30 mg tablet extended release 24 hr See Rx Instructions .ROUTE .COMPLEX RF: 0 ibuprofen 200 mg capsule 600 mg PO PRN RF: 0 diazepam 5 mg tablet 5 mg PO TID PRN (Reason: unknown) RF: 0 trazodone 50 mg tablet 50 - 100 mg PO BEDTIME RF: 0 aspirin 325 mg tablet 325 mg PO DAILY RF: 0 pantoprazole 40 mg tablet,delayed release (DR/EC) 40 mg PO BID RF: 0 sucralfate 1 gram tablet 1 gm PO PRN RF: 0 oxycodone 10 mg tablet 10 mg PO TID PRN (Reason: pain) 30 Days Qty: 90 RF: 0 oxycodone 10 mg tablet 10 mg PO TID PRN (Reason: pain) 30 Days Qty: 90 RF: 0 methadone 10 mg tablet 20 mg PO Q8H 30 Days Qty: 180 RF: 0 methadone 10 mg tablet 20 mg PO Q8H 30 Days Qty: 180 RF: 0 dicyclomine 20 mg tablet 20 mg PO TID PRN (Reason: abdominal pain) Qty: 20 RF: 0 ondansetron 4 mg tablet,disintegrating 4 mg PO Q6H PRN (Reason: nausea and vomiting) Qty: 14 RF: 0 Miralax 17 gram Powder In Packet 17 g PO DAILY RF: 0 metoprolol succinate 25 mg tablet extended release 24 hr 12.5 mg PO DAILY RF: 0 escitalopram oxalate 10 mg tablet 10 mg PO DAILY RF: 0 Campos Stool Softner 1 - 2 cap PO PRN RF: 0 Discharge Orders: Discharge Order (Routine); Ordered 02/24/20 Ordered By: Saravanan Le Referrals: Keya Ayala MD [Primary Care Provider] - Discharge Diet: Usual diet Discharge Activity: Increase activity as tolerated Patient Instructions: Shoulder Sprain (ED) Activity Restrictions/Additional Instructions: follow up with ortho as directed / Wear sling. Apply ice as needed. [place] prescribed meds as directed. Coding Level of Care Code ED Flaker Operator for Chg Fwd Exam Comprehensive
[2020-02-24 00:49] VITALS: BP 169/89; PULSE 96; RESP 20; O2SAT 98
--- NOTE | 2020-02-24 00:55 | PC.NURSE ---
pillows x 2 for comfort placed under knees patient requesting pain medication
[2020-02-24 01:04] VITALS: BP 142/88; PULSE 78; RESP 18; O2SAT 97
[2020-02-24 02:00] VITALS: BP 132/88; PULSE 78; RESP 18; O2SAT 97
[2020-02-24 02:15] VITALS: BP 132/88; PULSE 78; RESP 18; O2SAT 97
--- NOTE | 2020-02-25 12:18 | DCPLANNER ---
community marketing manager had message to schedule a follow up appointment for patient with ortho. community marketing manager called the ortho clinic, spoke with Jeanette, gave clinic patients information. community marketing manager was told that patients information would be printed and reviewed. Clinic will call patient with appointment information.
--- NOTE | 2020-02-26 07:56 | DCPLANNER ---
Patient has a follow up appointment scheduled for Sunday, February 27, 2020 at 10:[address] Marsh at ortho. Clinic will call patient with appointment information.
--- NOTE | 2020-03-31 13:07 | DCPLANNER ---
Patient had a follow up appointment scheduled for 02.27.20 with ortho - patient did attend.
== END 2020-02-24 02:17 | disposition home or self-care (01) ==
PROVIDERS: Emergency Provider Nurse Practitioner Family; PCP Family Medicine
DX: G89.29 Other chronic pain (principal); M54.5 Low back pain; S43.101A Unspecified dislocation of right acromioclavicular joint, initial encounter; Z79.82 Long term (current) use of aspirin; Z87.891 Personal history of nicotine dependence; I25.10 Atherosclerotic heart disease of native coronary artery without angina pectoris; E78.5 Hyperlipidemia, unspecified; W19.XXXA Unspecified fall, initial encounter
CPT/HCPCS: 12345; 72100; 73030; 99281; 99283

== ENCOUNTER 2020-03-02 08:54 | Outpatient (CLI) | payer MEDICARE, OTHER, SELFPAY ==
--- NOTE | 2020-03-02 08:45 | MR_ITS ---
WS: [id number] MRI RIGHT SHOULDER NONCONTRAST TECHNIQUE: Sagittal T2, coronal T1, T2 and proton density imaging. Axial gradient PDE imaging. CLINICAL INFORMATION: S49.90XA Unspecified injury of shoulder and upper arm, un... COMPARISON: None. FINDINGS: Moderate degenerative arthritis at the AC joint with edema. AC joint separation with widening measuri ng 5 mm with ligamentous injury. Narrowing of subacromial space with slight subacromial spurring. Min imal downsloping of the acromion. Nondisplaced fracture involving the base of the coracoid with edema. Edema extends into the adjacent glenoid. Surrounding soft tissue edema. Chronic thinning of the distal supraspinatus appears intact. No high-grade rotator cuff tears. Tiny u ndersurface tear at the infraspinatus insertion. Normal teres minor. Normal subscapularis tendon. Nor mal biceps tendon in the bicipital groove. Tear of the anterior superior glenoid labrum. Biceps stacey l anchor appears intact. Intra-articular biceps tendon appears intact. IMPRESSION: 1. AC joint separation with ligamentous injury and edema. 2. Nondisplaced fracture involving the base of the coracoid with edema extending into the adjacent g lenoid. Surrounding soft tissue edema. 3. No full-thickness rotator cuff tears. 4. Tear of the anterior superior glenoid labrum. Biceps labral anchor appears intact. 5. Normal biceps tendon in the bicipital groove.
--- NOTE | 2020-03-02 09:30 | MR_ITS ---
WS: [id number] MRI LUMBAR SPINE WITH CONTRAST TECHNIQUE: Sagittal T1, T2 and STIR imaging. Axial T1 and T2 imaging. Post gadolinium imaging was obt ained. CLINICAL INFORMATION: lumbar pain COMPARISON: MRI FINDINGS: Mild lumbar curve. No acute compression. No high-grade central canal stenosis. Evidence of prior post operative changes left hemilaminectomy L5-S1. L1-L2: Normal. L2-L3: No significant disc bulging. Mild facet arthropathy. Spinal canal and foramen are patent. L3-L4: Far right eccentric disc osteophyte complex encroaches on the far exiting right L3 nerve root laterally. Left foramen is patent. Mild facet arthropathy. L4-L5: Mild annular bulging with slight effacement of ventral thecal sac. Mild central canal stenosis . Slight impingement traversing left greater than right L5 nerve roots. Mild left and no significant right foraminal narrowing. Moderate facet arthropathy. L5-S1: Prior postoperative changes left hemilaminectomy. No evidence recurrent disc protrusion. Enhan cing granulation tissue about the left S1 nerve root. Foramen are patent. Spinal canal is patent. Bone marrow edema partially visualized in the distal sacrum at the sacrococcygeal junction consisten t with nondisplaced fracture. Mild irregularity in this area. This is partially visualized. Associate d enhancement consistent with reactive changes. Small amount of presacral soft tissue edema. MR/MR lumbar spine wo/w con [id number] IMPRESSION: 1. Diffuse bone marrow edema involving the distal sacrum and sacrococcygeal ju nction consistent with nondisplaced fracture. Reactive marrow changes with pres acral soft tissue edema. This is only partially evaluated. 2. Correlation for sacral pain. This is presumably due to recent trauma. This can be further evaluated or followed up with dedicated sacral MRI. 3. Prior postoperative changes at L5-S1 hemilaminectomy. No evidence of recurr ent disc extrusion. Enhancing granulation tissue in the left subarticular reces s about the left S1 nerve root. No nerve root impingement this level. 4. Far right lateral disc osteophyte ridging L3-4 encroaches on the far exitin g right L3 nerve root laterally. Recommend correlation for L3 nerve root sympto ms. 5. Mild central canal stenosis L4-5 with mild annular bulging and slight impin gement on the traversing left greater than right L5 nerve roots. 6. Moderate facet arthropathy L3-L5.
== END 2020-03-02 08:55 | disposition home or self-care (01) ==
LOC: RADSHAW 08:58
PROVIDERS: PCP Family Medicine; Visit Provider Orthopaedic Surgery
DX: M54.5 Low back pain (principal); M47.816 Spondylosis without myelopathy or radiculopathy, lumbar region; M48.061 Spinal stenosis, lumbar region without neurogenic claudication; M25.78 Osteophyte, vertebrae; R60.0 Localized edema
CPT/HCPCS: 72158; 73221; A9579

== ENCOUNTER → 2020-04-06 09:03 | Outpatient (BNVA) | payer MEDICARE, OTHER, SELFPAY | PROVIDERS: PCP Family Medicine; Visit Provider Anesthesiology | DX: M54.5 Low back pain (principal); Z79.891 Long term (current) use of opiate analgesic; M51.36 Other intervertebral disc degeneration, lumbar region; M54.16 Radiculopathy, lumbar region; M54.2 Cervicalgia; M48.061 Spinal stenosis, lumbar region without neurogenic claudication | CPT/HCPCS: 99214 ==

== ENCOUNTER 2020-06-03 06:00 | Outpatient (RCR) | payer MEDICARE, SELFPAY | END 2020-06-27 23:59 | disposition home or self-care (01) | LOC: SPT 06:00 | PROVIDERS: PCP Family Medicine; Referring Provider Physician Assistant Surgical; Visit Provider Physician Assistant Surgical | DX: Z47.89 Encounter for other orthopedic aftercare (principal); S42.101D Fracture of unspecified part of scapula, right shoulder, subsequent encounter for fracture with routine healing; X58.XXXD Exposure to other specified factors, subsequent encounter; M25.511 Pain in right shoulder | CPT/HCPCS: 97110; 97140; 97161 ==

== ENCOUNTER → 2020-06-18 07:53 | Outpatient (BNVA) | payer MEDICARE, SELFPAY | PROVIDERS: PCP Family Medicine; Visit Provider Anesthesiology | DX: G89.29 Other chronic pain (principal); M51.36 Other intervertebral disc degeneration, lumbar region; M54.16 Radiculopathy, lumbar region; M48.061 Spinal stenosis, lumbar region without neurogenic claudication; M54.2 Cervicalgia; M25.511 Pain in right shoulder; Z79.891 Long term (current) use of opiate analgesic | CPT/HCPCS: 99214 ==

== ENCOUNTER 2020-06-28 06:00 | Outpatient (RCR) | payer MEDICARE, SELFPAY | END 2020-07-28 23:59 | disposition home or self-care (01) | LOC: SPT 06:00 | PROVIDERS: PCP Family Medicine; Referring Provider Physician Assistant Surgical; Visit Provider Physician Assistant Surgical | DX: M25.511 Pain in right shoulder (principal) | CPT/HCPCS: 97110; 97140 ==

== ENCOUNTER 2020-06-29 12:35 | Outpatient (CLI) | payer MEDICARE, SELFPAY ==
--- NOTE | 2020-06-29 12:47 | XRR_ITS ---
PROCEDURE INFORMATION: Exam: XR Right Shoulder Exam date and time: 06/29/2020 1:02 PM Age: 59 years old Clinical indication: Injury or trauma and condition or disease; Other: FX of coracoid process, R shoulder; Blunt trauma (contusions or hematomas); Right; Injury details: Fall about a month ago, exacerbated initial injury TECHNIQUE: Imaging protocol: XR Right shoulder. Views: 2 or more views. COMPARISON: MR shoulder RT wo con* [id number] 03/02/2020 9:21 AM FINDINGS: Bones/joints: There is elevation of the distal clavicle in relation to the a chromium possible injury to the AC ligament. The glenohumeral joint is intact. No additional acute bony abnormalities are present. There are multiple chronic right rib fractures Soft tissues: Normal. XR/XR shoulder RT min 2V* [id number] IMPRESSION: 1. No acute right shoulder bone abnormality. 2. Possible AC ligament injury 3. Multiple right rib fractures
== END 2020-06-29 12:36 | disposition home or self-care (01) ==
PROVIDERS: PCP Family Medicine; Visit Provider Family Medicine
DX: S42.131A Displaced fracture of coracoid process, right shoulder, initial encounter for closed fracture (principal); X58.XXXA Exposure to other specified factors, initial encounter
CPT/HCPCS: 73030

== ENCOUNTER 2020-07-01 14:27 | Outpatient (CLI) | payer MEDICARE, SELFPAY ==
[2020-07-01 15:32] LABS: Anion Gap 9.3 (5-19); Blood Urea Nitrogen 13 mg/dL (6-20); Calcium 8.9 mg/dL (8.5-10.5); Carbon Dioxide 31 mmol/L (22-29); Chloride 101 mmol/L (98-107); Glomerular Filtration Rate 86.4 mL/min (90-130); Glucose 95 mg/dL (65-115); Osmolality Calculated 284 mOsm/kg (285-295); Potassium 4.3 mmol/L (3.5-5.1); Sodium 137 mmol/L (136-145)
== END 2020-07-01 14:28 | disposition home or self-care (01) ==
PROVIDERS: PCP Family Medicine; Visit Provider Family Medicine
DX: E87.1 Hypo-osmolality and hyponatremia (principal)
CPT/HCPCS: 36415; 80048

== ENCOUNTER 2020-08-09 08:15 | Outpatient (CLI) | payer MEDICARE, SELFPAY ==
--- NOTE | 2020-08-09 08:24 | MR_ITS ---
WS: [id number] MRI RIGHT SHOULDER NONCONTRAST TECHNIQUE: Sagittal T2, coronal T1, T2 and proton density imaging. Axial gradient PDE imaging. CLINICAL INFORMATION: AC SEPARATION, TYPE4, SHOULDER PAIN COMPARISON: Radiograph June 29, 2020 and MRI March 02, 2020 FINDINGS: Elevation of the distal clavicle relative to the acromium consistent with ligamentous injury. Associa gurmeet edema involving the AC joint. No visualized fractures. Elevation of the clavicle relative to the acromion measuring 1.5 CM. Chronic thinning of the distal supraspinatus appears intact. Tendinopathy in the distal supraspinatus . Tiny tear at the supraspinatus insertion. Normal infraspinatus. Normal teres minor. Normal subscapu dandy. Normal biceps tendon in the bicipital groove. Normal biceps labral anchor. Edema within the hu meral head likely degenerative change or due to contusion. Previously described nondisplaced fracture involving the base of the coracoid with edema has undergon e interval healing compared to the prior examination. Small amount of residual edema in this location .. MR/MR shoulder RT wo con* [id number] IMPRESSION: 1. Widening of the AC joint with edema. Displacement measuring 1.5 cm of the d istal clavicle relative to the acromium consistent with grade 3 injury. 2. No high-grade rotator cuff tears. Tiny insertional tear at the supraspinatu s insertion. 3. Tendinopathy supraspinatus. 4. Normal biceps labral anchor.Normal biceps tendon in the bicipital groove. 5. Edema in the humeral head likely due to degenerative change and/or contusio n is new from previous.
--- NOTE | 2020-08-09 08:40 | CT_ITS ---
WS: [id number] Noncontrast CT right shoulder TECHNIQUE: Noncontrast CT right shoulder with coronal and sagittal reformatted images. CLINICAL INFORMATION: PAIN, DISPLACED FRACTURE OF COROCOID PROCESS RIGHT SHOULDER COMPARISON: MRI March 02, 2020 DLP: 847.[address] scans at [facility] use at least one of these dose optimization techniques: automat ed exposure control; mA and/or kV adjustment per patient size (includes targeted exams where dose is matched to clinical indication); or iterative reconstruction. FINDINGS: AC joint separation with 1.5 cm elevation of the distal clavicle relative to the acromion. No distal clavicular fractures. Nondisplaced previously described fracture coracoid process with evidence of in terval healing since the prior MRI. Associated sclerosis. No significant displacement. Degenerative arthritis glenohumeral joint. No humeral fractures. Scapula is otherwise normal in appea clark. Partially visualized chronic appearing right upper posterior lateral rib fractures. Chronic em physematous changes. CT/CT shoulder RT wo con* [id number] IMPRESSION: 1. Type III AC joint separation with displacement of the distal clavicle relat shantal to the acromion. Distal clavicle appears intact. 2. Previously described healing coracoid fracture with sclerosis along the fra cture line. No displacement. 3. Humeral head is intact. No humeral head fractures. Degenerative arthritis g lenohumeral joint. 4. Chronic appearing right upper posterior lateral rib fractures.
== END 2020-08-09 08:16 | disposition home or self-care (01) ==
PROVIDERS: PCP Family Medicine; Visit Provider Orthopaedic Surgery
DX: S42.131A Displaced fracture of coracoid process, right shoulder, initial encounter for closed fracture (principal); S42.031A Displaced fracture of lateral end of right clavicle, initial encounter for closed fracture; M19.011 Primary osteoarthritis, right shoulder; S22.41XA Multiple fractures of ribs, right side, initial encounter for closed fracture; X58.XXXA Exposure to other specified factors, initial encounter
CPT/HCPCS: 73200; 73221

== ENCOUNTER → 2020-08-27 08:06 | Outpatient (BNVA) | payer MEDICARE, SELFPAY | PROVIDERS: PCP Family Medicine; Visit Provider Anesthesiology | DX: G89.29 Other chronic pain (principal); M51.36 Other intervertebral disc degeneration, lumbar region; M48.061 Spinal stenosis, lumbar region without neurogenic claudication; M54.16 Radiculopathy, lumbar region; M54.2 Cervicalgia; Z79.891 Long term (current) use of opiate analgesic | CPT/HCPCS: 99214 ==

== ENCOUNTER 2020-09-20 06:00 | Outpatient (RCR) | payer MEDICARE, SELFPAY | END 2020-09-27 23:59 | disposition home or self-care (01) | LOC: SPT 06:00 | PROVIDERS: PCP Family Medicine; Referring Provider Physician Assistant Surgical; Visit Provider Physician Assistant Surgical | DX: M25.511 Pain in right shoulder (principal); S43.101D Unspecified dislocation of right acromioclavicular joint, subsequent encounter; X58.XXXD Exposure to other specified factors, subsequent encounter | CPT/HCPCS: 97110; 97140; 97161 ==

== ENCOUNTER 2020-09-28 06:00 | Outpatient (RCR) | payer MEDICARE, SELFPAY | END 2020-10-27 23:59 | disposition home or self-care (01) | LOC: SPT 06:00 | PROVIDERS: PCP Family Medicine; Referring Provider Physician Assistant Surgical; Visit Provider Physician Assistant Surgical | DX: M25.511 Pain in right shoulder (principal) | CPT/HCPCS: 97110 ==

== ENCOUNTER → 2020-10-26 08:14 | Outpatient (BNVA) | payer MEDICARE, SELFPAY | PROVIDERS: PCP Family Medicine; Visit Provider Anesthesiology | DX: M51.36 Other intervertebral disc degeneration, lumbar region (principal); M54.16 Radiculopathy, lumbar region; M48.061 Spinal stenosis, lumbar region without neurogenic claudication; Z79.891 Long term (current) use of opiate analgesic; Z87.891 Personal history of nicotine dependence | CPT/HCPCS: 99213 ==

== ENCOUNTER 2020-10-28 06:00 | Outpatient (RCR) | payer MEDICARE, SELFPAY | END 2020-11-27 23:59 | disposition home or self-care (01) | LOC: SPT 06:00 | PROVIDERS: PCP Family Medicine; Referring Provider Physician Assistant Surgical; Visit Provider Physician Assistant Surgical | DX: M25.511 Pain in right shoulder (principal); S43.101D Unspecified dislocation of right acromioclavicular joint, subsequent encounter; X58.XXXD Exposure to other specified factors, subsequent encounter | CPT/HCPCS: 97110 ==

== ENCOUNTER 2020-10-29 08:25 | Outpatient (CLI) | payer MEDICARE, SELFPAY ==
--- NOTE | 2020-10-29 08:39 | XR_ITS ---
WS: [id number] Right knee, 3 views, 10/29/2020 Clinical Data: PAIN IN RIGHT KNEE Comparison: Right knee, 07/31/2016. Findings: No fractures or dislocations are seen. There is narrowing of the medial joint compartment There is mi nimal irregularity of the articular surface of the medial tibial plateau and possible osteochondral d efect of the medial femoral condyle. The patella demonstrates an anterior superior spur. The soft tis sues are unremarkable. XR/XR knee RT 3V* [id number] Impression: 1. Mild irregularity of the medial tibial plateau articular surface and possibl e osteochondral defect of the medial femoral condyle of the right knee. 2. Narrowing of the medial joint space. Kellgren-Franco Classification: grade 2 (minimal): definite osteophytes and p ossible joint space narrowing
== END 2020-10-29 08:26 | disposition home or self-care (01) ==
PROVIDERS: PCP Family Medicine; Visit Provider Family Medicine
DX: M25.561 Pain in right knee (principal)
CPT/HCPCS: 73562

== ENCOUNTER → 2020-12-01 11:41 | Outpatient (BNVA) | payer MEDICARE, SELFPAY | PROVIDERS: PCP Family Medicine; Referring Provider Family Medicine; Visit Provider Orthopaedic Surgery | DX: Z48.89 Encounter for other specified surgical aftercare (principal) | CPT/HCPCS: 73590 ==

== ENCOUNTER → 2020-12-14 09:52 | Outpatient (BNVA) | payer MEDICARE, SELFPAY | PROVIDERS: PCP Family Medicine; Visit Provider Orthopaedic Surgery | DX: Z48.89 Encounter for other specified surgical aftercare (principal) | CPT/HCPCS: 73590 ==

== ENCOUNTER → 2020-12-28 14:04 | Outpatient (BNVA) | payer MEDICARE, SELFPAY | PROVIDERS: PCP Family Medicine; Visit Provider Orthopaedic Surgery | DX: Z48.89 Encounter for other specified surgical aftercare (principal) | CPT/HCPCS: 73590 ==

== ENCOUNTER → 2021-01-04 07:59 | Outpatient (BNVA) | payer MEDICARE, SELFPAY | PROVIDERS: PCP Family Medicine; Visit Provider Anesthesiology | DX: G89.29 Other chronic pain (principal); M51.36 Other intervertebral disc degeneration, lumbar region; M54.16 Radiculopathy, lumbar region; M48.061 Spinal stenosis, lumbar region without neurogenic claudication; M54.2 Cervicalgia; Z79.891 Long term (current) use of opiate analgesic | CPT/HCPCS: 99214 ==

== ENCOUNTER → 2021-01-18 08:53 | Outpatient (BNVA) | payer MEDICARE, SELFPAY | PROVIDERS: PCP Family Medicine; Visit Provider Orthopaedic Surgery | DX: M25.561 Pain in right knee (principal); M25.562 Pain in left knee | CPT/HCPCS: 73590 ==

== ENCOUNTER → 2021-02-02 13:41 | Outpatient (BNVA) | payer MEDICARE, SELFPAY | PROVIDERS: PCP Family Medicine; Visit Provider Orthopaedic Surgery | DX: Z48.89 Encounter for other specified surgical aftercare (principal) | CPT/HCPCS: 73590 ==

== ENCOUNTER → 2021-03-01 08:44 | Outpatient (BNVA) | payer MEDICARE, SELFPAY | PROVIDERS: PCP Family Medicine; Visit Provider Anesthesiology | DX: G89.29 Other chronic pain (principal); M51.36 Other intervertebral disc degeneration, lumbar region; M54.16 Radiculopathy, lumbar region; M54.2 Cervicalgia; M25.511 Pain in right shoulder; Z79.891 Long term (current) use of opiate analgesic | CPT/HCPCS: 99214 ==

== ENCOUNTER → 2021-03-23 13:17 | Outpatient (BNVA) | payer MEDICARE, SELFPAY | PROVIDERS: PCP Family Medicine; Visit Provider Orthopaedic Surgery | DX: Z48.89 Encounter for other specified surgical aftercare (principal); S89.1 Physeal fracture of lower end of tibia; S89.20 Unspecified physeal fracture of upper end of fibula; X58.XXXD Exposure to other specified factors, subsequent encounter | CPT/HCPCS: 73590 ==

== ENCOUNTER 2021-04-18 14:50 | Outpatient (CLI) | payer MEDICARE, SELFPAY ==
--- NOTE | 2021-04-18 15:04 | XR_ITS ---
WS: [id number] Exam: XR shoulder LT min 2V* [id number] Date/Time of Exam: 04/18/2021 3:15 PM Reason For Exam: PAIN IN LEFT SHOULDER No acute fracture or dislocation. Minimal degenerative changes at the glenohumeral joint and the AC j oint. Normal soft tissues. Numerous old left rib fractures noted. XR/XR shoulder LT min 2V* [id number] IMPRESSION: 1. Mild degenerative change. No fracture or dislocation.
== END 2021-04-18 14:51 | disposition home or self-care (01) ==
PROVIDERS: PCP Family Medicine; Visit Provider Family Medicine
DX: M25.512 Pain in left shoulder (principal)
CPT/HCPCS: 73030

== ENCOUNTER → 2021-05-06 07:53 | Outpatient (BNVA) | payer MEDICARE, SELFPAY | PROVIDERS: PCP Family Medicine; Visit Provider Anesthesiology | DX: G89.29 Other chronic pain (principal); M51.36 Other intervertebral disc degeneration, lumbar region; M54.16 Radiculopathy, lumbar region; M48.061 Spinal stenosis, lumbar region without neurogenic claudication; M54.2 Cervicalgia; M25.519 Pain in unspecified shoulder; Z79.891 Long term (current) use of opiate analgesic; Z87.891 Personal history of nicotine dependence | CPT/HCPCS: 99214 ==

== ENCOUNTER 2021-05-06 10:08 | Outpatient (CLI) | payer MEDICARE, SELFPAY ==
--- NOTE | 2021-05-06 10:11 | XR_ITS ---
WS: [id number] Left knee, 3 views, 05/06/2021 Clinical Data: INJURY OF LEFT LEG Comparison: None. Findings: No fractures or dislocations are seen. The joint spaces are normal. The patella is intact. The soft t issues are unremarkable. There is an intramedullary diaz in the left tibia fixed with 2 proximal transverse screws. XR/XR knee LT 3V* [id number] Impression: Negative left knee. Kellgren-Franco Classification: grade 0 (none): definite absence of x-ray greyson nges of osteoarthritis
--- NOTE | 2021-05-06 10:11 | XR_ITS ---
WS: [id number] Left ankle, 3 views, 05/06/2021 Clinical Data: INJURY OF LEFT LEG Comparison: None. Findings: No new fractures or dislocations are seen. The ankle mortise is normal with periarticular demineraliz ation.. The talus and calcaneus are unremarkable. No soft tissue swelling over the medial or lateral malleolus is seen. There is a healed distal left fibular fracture. There is a tibial intramedullary diaz fixed with 3 dis antwon screws reducing an old distal tibial fracture. XR/XR ankle LT min 3V* [id number] Impression: 1. Negative for new fracture or dislocation. 2. Periarticular demineralization of the ankle. 3. Internal fixation of distal left tibial fracture and healed distal left fibu lar fracture.
--- NOTE | 2021-05-06 10:11 | XR_ITS ---
WS: [id number] Left leg including the tibia and fibula, AP and lateral views, 05/06/2021 Clinical Data: INJURY OF LEFT LOWER LEG Comparison: Left leg, 03/23/2021. Findings: No new fractures or dislocations are seen. The old fractures of the proximal left fibula and distal l eft fibula remain healed. There is a long intramedullary diaz extending the length of the tibia reduci ng a comminuted distal left tibial fracture. There is a small anterior plate with small screws in the distal left tibia aiding in the tibial fracture reduction. There are 2 proximal transverse screws ho lding the intramedullary daiz and 3 distal screws holding the intramedullary diaz. XR/XR tibia fibula LT 2V [id number] Impression: 1. Internal fixation of distal left tibial fracture unchanged. 2. Healed fractures of the proximal and distal left fibula. 3. Negative for new fracture or dislocation.
== END 2021-05-06 10:09 | disposition home or self-care (01) ==
LOC: RAD 10:08
PROVIDERS: PCP Family Medicine; Visit Provider Family Medicine
DX: S89.92XA Unspecified injury of left lower leg, initial encounter (principal); X58.XXXA Exposure to other specified factors, initial encounter
CPT/HCPCS: 73562; 73590; 73610

== ENCOUNTER 2021-05-27 06:00 | Outpatient (RCR) | payer MEDICARE, SELFPAY | END 2021-05-30 23:59 | disposition home or self-care (01) | LOC: SPT 06:00 | PROVIDERS: PCP Family Medicine; Referring Provider Family Medicine; Visit Provider Family Medicine | DX: M79.605 Pain in left leg (principal) | CPT/HCPCS: 97161 ==

== ENCOUNTER 2021-05-31 06:00 | Outpatient (RCR) | payer MEDICARE, SELFPAY | END 2021-06-27 23:59 | disposition home or self-care (01) | LOC: SPT 06:00 | PROVIDERS: PCP Family Medicine; Referring Provider Family Medicine; Visit Provider Family Medicine | DX: M79.605 Pain in left leg (principal) | CPT/HCPCS: 97110; 97140 ==

== ENCOUNTER → 2021-06-07 08:04 | Outpatient (BNVA) | payer MEDICARE, SELFPAY | PROVIDERS: PCP Family Medicine; Visit Provider Anesthesiology | DX: G89.29 Other chronic pain (principal); M54.16 Radiculopathy, lumbar region; M51.36 Other intervertebral disc degeneration, lumbar region; M54.2 Cervicalgia; M25.511 Pain in right shoulder; Z79.891 Long term (current) use of opiate analgesic; Z87.891 Personal history of nicotine dependence | CPT/HCPCS: 99214 ==

== ENCOUNTER 2021-06-28 06:00 | Outpatient (RCR) | payer MEDICARE, SELFPAY | END 2021-07-28 23:59 | disposition home or self-care (01) | LOC: SPT 06:00 | PROVIDERS: PCP Family Medicine; Referring Provider Family Medicine; Visit Provider Family Medicine | DX: M79.662 Pain in left lower leg (principal) | CPT/HCPCS: 97110 ==

== ENCOUNTER 2021-07-27 14:02 | Outpatient (CLI) | payer MEDICARE, SELFPAY ==
--- NOTE | 2021-07-27 14:27 | XR_ITS ---
WS: [id number] Exam: XR knee LT 3V* [id number] Date/Time of Exam: 07/27/2021 2:51 PM Reason For Exam: FRACTURE LEFT LOWER LEG Comparison 05/06/2021. No fracture or dislocation. The joint compartments are relatively well maintained. No joint effusion. Old fracture of the upper fibular diaphysis. An intramedullary diaz and screws are noted in the tibia . XR/XR knee LT 3V* [id number] IMPRESSION: 1. Unremarkable left knee. 2. Old fracture of the fibular diaphysis. Hardware in the tibia as noted above.
--- NOTE | 2021-07-27 14:28 | XR_ITS ---
WS: [id number] Exam: XR ankle LT min 3V* [id number] Date/Time of Exam: 07/27/2021 2:51 PM Reason For Exam: F/U ANKLE FRACTURE No acute fracture noted. Old partially healed fracture of the lower tibia is noted with the internal fixation hardware. There is a healed fracture of the lower fibular diaphysis. The ankle mortise is in tact. XR/XR ankle LT min 3V* [id number] IMPRESSION: 1. Old fractures of the lower fibula and tibia. Fixation hardware in the tibia. 2. The ankle mortise is intact and no acute fractures are noted.
== END 2021-07-27 14:03 | disposition home or self-care (01) ==
PROVIDERS: PCP Family Medicine; Visit Provider Family Medicine
DX: S82.892A Other fracture of left lower leg, initial encounter for closed fracture (principal); X58.XXXA Exposure to other specified factors, initial encounter
CPT/HCPCS: 73562; 73610

== ENCOUNTER 2021-07-29 06:00 | Outpatient (RCR) | payer MEDICARE, SELFPAY | END 2021-08-27 23:59 | disposition home or self-care (01) | LOC: SPT 06:00 | PROVIDERS: PCP Family Medicine; Referring Provider Family Medicine; Visit Provider Family Medicine | DX: M79.605 Pain in left leg (principal) | CPT/HCPCS: 97110 ==

== ENCOUNTER 2021-08-23 13:13 | Outpatient (CLI) | payer MEDICARE, SELFPAY ==
--- NOTE | 2021-08-23 13:27 | XR_ITS ---
WS: [id number] Left knee, 4 views, 08/23/2021 Clinical Data: KICKED IN L PATELLA BY COW/HARD TO WALK/KNEE PAIN Comparison: Left knee, 07/27/2021. Findings: No new fractures or dislocations are seen. The joint spaces are normal. The patella is intact. There is an anterior superior spur of the left patella. The soft tissues are unremarkable. There is an intramedullary diaz in the tibia fixed with 2 proximal transverse screws. There are old p roximal and distal fibular fractures. XR/XR knee LT 3V* [id number] Impression: Negative left knee.
== END 2021-08-23 13:14 | disposition home or self-care (01) ==
LOC: RAD 13:19
PROVIDERS: PCP Family Medicine; Visit Provider Family Medicine
DX: M25.562 Pain in left knee (principal); W64.XXXD Exposure to other animate mechanical forces, subsequent encounter; M25.762 Osteophyte, left knee; Z87.81 Personal history of (healed) traumatic fracture
CPT/HCPCS: 73562

== ENCOUNTER 2021-08-28 06:00 | Outpatient (RCR) | payer MEDICARE, SELFPAY | END 2021-09-27 23:59 | disposition home or self-care (01) | LOC: SPT 06:00 | PROVIDERS: PCP Family Medicine; Referring Provider Family Medicine; Visit Provider Family Medicine | DX: M79.605 Pain in left leg (principal) | CPT/HCPCS: 97110 ==

== ENCOUNTER 2021-08-29 12:48 | Outpatient (CLI) | payer MEDICARE, SELFPAY ==
--- NOTE | 2021-08-29 12:55 | MR_ITS ---
WS: [id number] MRI LEFT KNEE HISTORY: PAIN IN LT KNEE/KICKED BY COW OVER L PATELLA/HARD TO WALK COMPARISON: 08/23/2021 and 07/27/2021 radiographs. Anterior cruciate ligament: Intact. Posterior cruciate ligament: Intact. Medial collateral ligament: Very mild thinning with partial tear involving the distal MCL. There is a moderate amount of surrounding edema around the entire MCL. Posterior lateral corner structures: Intact. Medial menisci: Intact. Normal signal, size and shape. Lateral meniscus: Intact. Normal signal, size and shape. Extensor mechanism: Distal quadriceps tendon and patellar tendons are intact. Fluid and soft tissue: Small suprapatellar effusion. No Fish's cyst. Osseous and articular structures: Patellofemoral compartment: Normal. No marrow edema. Normal cartilage. Medial compartment: Abnormal signal in the medial compartment. There is a nondisplaced fracture invol ving the tibial plateau. Fracture is at the site of the MCL tear. Fracture involves the tibial platea u and the metaphysis along the medial compartment. There is some artifact through this area for the p prabhakar's tibial intramedullary diaz. Lateral compartment: Normal. There is a moderate amount of soft tissue edema along the medial knee centered at the site of the fra cture in the tibial plateau. MR/MR knee LT wo con* [id number] IMPRESSION: 1. Nondepressed medial tibial plateau fracture. 2. Partial tear MCL at the site of the medial tibial plateau fracture. 3. Moderate amount of edema along the medial knee surrounding the MCL.
== END 2021-08-29 12:49 | disposition home or self-care (01) ==
LOC: RAD 12:50
PROVIDERS: PCP Family Medicine; Visit Provider Family Medicine
DX: M25.562 Pain in left knee (principal); S82.142A Displaced bicondylar fracture of left tibia, initial encounter for closed fracture; W55.22XA Struck by cow, initial encounter; S83.412A Sprain of medial collateral ligament of left knee, initial encounter
CPT/HCPCS: 73721

== ENCOUNTER 2021-09-28 06:00 | Outpatient (RCR) | payer MEDICARE, SELFPAY | END 2021-10-27 23:59 | disposition home or self-care (01) | LOC: SPT 06:00 | PROVIDERS: PCP Family Medicine; Referring Provider Family Medicine; Visit Provider Family Medicine | DX: S43.101D Unspecified dislocation of right acromioclavicular joint, subsequent encounter (principal); X58.XXXD Exposure to other specified factors, subsequent encounter | CPT/HCPCS: 97110 ==

== ENCOUNTER → 2021-10-04 13:10 | Outpatient (BNVA) | payer MEDICARE, SELFPAY | PROVIDERS: PCP Family Medicine; Visit Provider Internal Medicine Cardiovascular Disease | DX: I25.10 Atherosclerotic heart disease of native coronary artery without angina pectoris (principal); E78.5 Hyperlipidemia, unspecified; Z79.891 Long term (current) use of opiate analgesic; F17.200 Nicotine dependence, unspecified, uncomplicated | CPT/HCPCS: 99213 ==

== ENCOUNTER 2021-10-31 21:07 | Emergency (ER) | payer MEDICARE, SELFPAY ==
[2021-10-31 21:14] VITALS: BP 126/79; PULSE 75; RESP 16; TEMP 37.1; O2SAT 96; BMI 26.6
--- NOTE | 2021-10-31 21:37 | XRR_ITS ---
PROCEDURE INFORMATION: Exam: XR Right Forearm Exam date and time: 10/31/2021 10:08 PM Age: 61 years old Clinical indication: Pain; Lower or forearm; Right; Additional info: Fall injury TECHNIQUE: Imaging protocol: Radiologic exam of the Right forearm. Views: 2 views. COMPARISON: No relevant prior studies available. FINDINGS: Bones/joints: No acute fracture. No dislocation. Normal bone mineralization. No joint effusion. Joint spaces are maintained. Small calcified enthesophyte at the triceps tendon insertion. Soft tissues: No soft tissue swelling. No radiopaque foreign body. Small well corticated ossified density medial to the wrist that may represent sequela of remote trauma. XR/XR forearm RT 2V [id number] IMPRESSION: 1. No acute fracture of the right forearm. Followup imaging recommended in 7-14 days if clinical concern for fracture persists. 2. Incidental/nonacute findings are listed in the report.
--- NOTE | 2021-10-31 22:47 | W.ED.EXTPRO ---
HPI - Extremity Problem General: Chief complaint: Extremity Injury, Upper Stated complaint: Rt Arm Injury Time Seen by Provider: 10/31/21 22:33 History of Present Illness: Patient is a 61-year-old male comes to the ED with right forearm injury. Injury occurred just prior to arrival. Patient says he was out in his barn and tripped over some material. When he was falling down he reached to grab onto something with his right arm and it went into a pile of old tin. He then fell down and landed on his right arm into the tendon causing some skin tears to his forearm. He has some mild swelling around his forearm. Full range of motion in wrist and fingers of right hand. Patient is unsure of his last tetanus. Denies any head trauma or loss of consciousness. Associated symptoms: Deny chest pain, fever(s) or rash Review of Systems Const: Denies: fever(s), chills or fatigue Eyes: Denies: change in vision or eye discomfort ENMT: Denies: throat pain, odynophagia, nasal discharge or nasal congestion Card: Denies: chest pain, palpitations, edema, swelling of feet/ankles, dyspnea on exertion or orthopnea Resp: Denies: dyspnea, productive cough or non-productive cough GI: Denies: abdominal pain, nausea, vomiting, diarrhea, constipation or hematochezia : Denies: flank pain, difficulty urinating, dysuria or hematuria Musc: Denies: neck pain, back pain or extremity swelling Skin/Breast: Reports: new lesions (Superficial abrasions to right forearm); Denies: rash Neuro: Denies: headache(s), numbness in extremities or weakness in extremities [facility] ED PFSH: Medical History CAD (coronary artery disease) Chronic right shoulder pain DDD (degenerative disc disease), lumbar Dyslipidemia Encounter for long-term use of opiate analgesic Lumbar radiculitis Lumbar spine pain Neck pain Opioid contract exists Surgical History S/P knee surgery right x2 S/P shoulder surgery left x2 Family History Other CAD (coronary artery disease) Social History Smoking and tobacco status: light tobacco smoker Second hand smoke exposure: No Alcohol intake: former Lives independently: Yes Marital status: service: No Current occupational status: disabled History of recent travel: No Current gender identity: Male Katty/Zoroastrian: Yarsanism Physical Exam Const: COMMON NORMALS: no acute distress, patient oriented x3 and alert GENERAL APPEARANCE: cooperative and comfortable HENMT: COMMON NORMALS: normocephalic HEAD & SCALP: normocephalic MOUTH: Normal oral and palatal mucosa present THROAT: posterior oropharynx normal and uvula midline Neck/C-Spine: COMMON NORMALS: supple GENERAL: Yes normal visual inspection Resp: COMMON NORMALS: normal respiratory effort, No retractions, No use of accessory muscles and clear to auscultation bilaterally AUSCULTATION: clear to auscultation bilaterally Cardio: COMMON NORMALS: regular rate, regular rhythm, S1 normal heart sound present, S2 normal heart sound present, No gallops present (Cardio), No clicks present (Cardio), No murmurs present (Cardio) and Peripheral pulses 2+ throughout RATE: regular rate RHYTHM: regular rhythm HEART SOUNDS: S1 normal heart sound present and S2 normal heart sound present PERIPHERAL PULSES: Peripheral pulses 2+ throughout GI: COMMON NORMALS: Normal to inspection, nondistended, normoactive bowel sounds present, Soft to palpation, non-tender and no masses PALPATION: Yes Soft to palpation : COMMON NORMALS: Yes no CVA tenderness BLADDER/KIDNEY EXAM: Yes no CVA tenderness Back/Pelvis: COMMON NORMALS: no CVA tenderness Extremity: NARRATIVE EXTREMITY EXAM: Patient has multiple superficial abrasions to right forearm. Full range of motion in right wrist and patient is able to support his weight on right arm. No visible deformities noted. GENERAL: Yes normal exam except as noted Neuro: COMMON NORMALS: patient oriented x3 and moves all extremities SENSORIUM/ORIENTATION: Yes alert Skin: GENERAL SKIN EXAM: dry skin Course Vital Signs: Vital signs: Vital Signs Temperature 98.6 F 10/31/21 23:36 Pulse Rate 89 10/31/21 23:36 Respiratory Rate 18 10/31/21 23:36 Blood Pressure 129/80 10/31/21 23:36 Pulse Oximetry 97 10/31/21 23:36 MDM - Extremity (Nontraumatic) Medical Decision Making Patient is a 61-year-old male comes to the ED with right forearm injury. He has multiple abrasions to right forearm. Exam shows no concern for fractures. X-ray of right forearm showed no acute fractures. Patient was given dose of tetanus here in the ED. Patient's forearm abrasions were irrigated extensively with normal saline and Betadine iodine wash. Nurse then applied triple antibiotic ointment and bandage them. Patient was given a single dose of Keflex as well while here in the ED. He was diagnosed with forearm abrasions and discharged home with a prophylactic antibiotic prescription. He was instructed on how to care for abrasions. Patient understood and agreed with plan. Lab Data Radiology Impressions Forearm X-Ray 10/31/21 21:37 IMPRESSION: 1. No acute fracture of the right forearm. Followup imaging recommended in 7-14 days if clinical concern for fracture persists. 2. Incidental/nonacute findings are listed in the report. Discharge Plan Discharge Patient Disposition: Home Clinical Impression: Abrasion of forearm Qualifiers: Encounter type: initial encounter Laterality: right Qualified Code(s): S50.811A - Abrasion of right forearm, initial encounter Condition: Stable Prescriptions: New cephalexin 500 mg capsule 500 mg PO Q6H 4 Days Qty: 16 0RF No Action atorvastatin 40 mg tablet 40 mg PO DAILY 0RF isosorbide mononitrate 30 mg tablet extended release 24 hr See Rx Instructions .ROUTE .COMPLEX 0RF Rx Instructions: pt states he stop taking this medication about 3 weeks ago-rx last filled 10/30/2019 90d/s 30mg qam ibuprofen 200 mg capsule 600 mg PO PRN 0RF Rx Instructions: pt states he may take four times a week diazepam 5 mg tablet 5 mg PO TID PRN (Reason: unknown) 0RF trazodone 50 mg tablet 50 - 100 mg PO BEDTIME 0RF aspirin 325 mg tablet 325 mg PO DAILY 0RF pantoprazole 40 mg tablet,delayed release (DR/EC) 40 mg PO BID 0RF methadone 10 mg tablet 10 mg PO Q6H 30 Days Qty: 120 0RF Rx Instructions: fill on or after 06/11/21 oxycodone 10 mg tablet 10 mg PO QID 30 Days Qty: 120 0RF Rx Instructions: fill on or after 07/10/21 BIO COMPLETE PO 0RF ferrous sulfate [iron] 325 mg (65 mg iron) tablet 325 mg PO DAILY 0RF cyanocobalamin (vitamin B-12) 25 mcg tablet 1,000 mcg PO DAILY 0RF methadone 10 mg tablet 10 mg PO Q12H 0RF Rx Instructions: fill on or after 07/10/21 oxycodone 10 mg tablet 10 mg PO QID PRN (Reason: pain) 0RF Rx Instructions: fill on or after 06/11/21 Max 20 mg daily vitamin B complex [B Complex-Vitamin B12] Tablet 1 tab PO DAILY 0RF ascorbic acid (vitamin C) 500 mg capsule PO DAILY 0RF ascorbate calcium (vitamin C) 500 mg tablet 500 mg PO DAILY 0RF polyethylene glycol 3350 [Miralax] 17 gram/dose powder 4 g PO DAILY 0RF nitroglycerin [Nitrostat] 0.4 mg tablet, sublingual 0.4 mg SUBLINGUAL Q5M PRN (Reason: Chest Pain) Qty: 25 5RF ondansetron 4 mg tablet,disintegrating 4 mg PO Q6H PRN (Reason: nausea and vomiting) Qty: 14 0RF metoprolol succinate 25 mg tablet extended release 24 hr 12.5 mg PO DAILY 0RF escitalopram oxalate 10 mg tablet 10 mg PO DAILY 0RF Rx Instructions: pt states he takes this medication-rx filled 12/07/2019 30d/s Discharge Orders: Discharge ED (Routine); Ordered 10/31/21 Ordered By: Khoa Trujillo Referrals: Keya Ayala MD [Primary Care Provider] - Discharge Diet: Regular Discharge Activity: Resume usual activity Patient Instructions: Abrasion (ED) Activity Restrictions/Additional Instructions: Follow-up with medical provider as directed in the next 7 to 10 days for reevaluation.clean abrasions daily with soap and water then apply triple antibiotic ointment on them and keep covered with bandage. Take medications as prescribed. Return to the ER or your medical provider if condition worsens. Please read and understand discharge instructions. Thank you for choosing [facility] for your healthcare needs today. Please realize this is an emergency room and that we are providing you with a medical screening exam and this may not be complete and all inclusive of all the testing and or work up that you may need to determine your ailment or severity of your illness. It is very important that you follow up as instructed or that you return to the Emergency Department should you have concerns or if your condition changes or worsens in any way. Coding Level of Care Code ED Offshoring Manager for Chg Fwd Exam Comprehensive
[2021-10-31] MEDS: cephALEXin 500 mg Capsule PO (23:15)
[2021-10-31] MEDS: tetanus-dipt-pertussis 0.5 mL SDV IM (23:17)
[2021-10-31] MEDS: neomycin-poly-bacitracin oint 0.9 gm Pkt 1 APPLIC TOPICAL (23:32)
[2021-10-31 23:36] VITALS: BP 129/80; PULSE 89; RESP 18; TEMP 37; O2SAT 97
== END 2021-10-31 23:37 | disposition home or self-care (01) ==
PROVIDERS: Emergency Provider Physician Assistant; PCP Family Medicine
DX: S50.811A Abrasion of right forearm, initial encounter (principal); Z79.82 Long term (current) use of aspirin; Z79.891 Long term (current) use of opiate analgesic; I25.10 Atherosclerotic heart disease of native coronary artery without angina pectoris; E78.5 Hyperlipidemia, unspecified; F17.210 Nicotine dependence, cigarettes, uncomplicated; Z23 Encounter for immunization; W18.09XA Striking against other object with subsequent fall, initial encounter
CPT/HCPCS: 73090; 90471; 90715; 99283

== ENCOUNTER 2021-11-03 16:13 | Outpatient (RCR) | payer MEDICARE, SELFPAY | END 2021-11-27 23:59 | disposition home or self-care (01) | LOC: SPT 16:13 | PROVIDERS: PCP Family Medicine; Referring Provider Family Medicine; Visit Provider Family Medicine | DX: Z47.89 Encounter for other orthopedic aftercare (principal); M79.605 Pain in left leg; S43.101D Unspecified dislocation of right acromioclavicular joint, subsequent encounter; X58.XXXD Exposure to other specified factors, subsequent encounter | CPT/HCPCS: 97110 ==

== ENCOUNTER 2022-01-28 06:00 | Outpatient (RCR) | payer MEDICARE, SELFPAY | END 2022-02-27 23:59 | disposition home or self-care (01) | LOC: SPT 06:00 | PROVIDERS: PCP Family Medicine; Visit Provider Orthopaedic Surgery | DX: Z47.89 Encounter for other orthopedic aftercare (principal); M25.572 Pain in left ankle and joints of left foot | CPT/HCPCS: 97110; 97161 ==

== ENCOUNTER 2022-02-28 06:00 | Outpatient (RCR) | payer MEDICARE, SELFPAY | END 2022-03-29 23:59 | disposition home or self-care (01) | LOC: SPT 06:00 | PROVIDERS: PCP Family Medicine; Visit Provider Orthopaedic Surgery | DX: S82.202B Unspecified fracture of shaft of left tibia, initial encounter for open fracture type I or II (principal); S82.402B Unspecified fracture of shaft of left fibula, initial encounter for open fracture type I or II; X58.XXXA Exposure to other specified factors, initial encounter | CPT/HCPCS: 97110; 97140 ==

== ENCOUNTER 2022-03-30 06:00 | Outpatient (RCR) | payer MEDICARE, SELFPAY | END 2022-04-29 23:59 | disposition home or self-care (01) | LOC: SPT 06:00 | PROVIDERS: PCP Family Medicine; Visit Provider Orthopaedic Surgery | DX: S82.202B Unspecified fracture of shaft of left tibia, initial encounter for open fracture type I or II (principal); S82.402B Unspecified fracture of shaft of left fibula, initial encounter for open fracture type I or II; X58.XXXA Exposure to other specified factors, initial encounter | CPT/HCPCS: 97110 ==

== ENCOUNTER 2022-06-08 06:00 | Outpatient (RCR) | payer MEDICARE, SELFPAY | END 2022-06-27 23:59 | disposition home or self-care (01) | LOC: SPT 06:00 | PROVIDERS: PCP Family Medicine; Visit Provider Orthopaedic Surgery | DX: Z98.890 Other specified postprocedural states (principal); Z47.89 Encounter for other orthopedic aftercare; M25.511 Pain in right shoulder; S43.111D Subluxation of right acromioclavicular joint, subsequent encounter; X58.XXXD Exposure to other specified factors, subsequent encounter | CPT/HCPCS: 97110; 97162 ==

== ENCOUNTER 2022-06-28 06:00 | Outpatient (RCR) | payer MEDICARE, SELFPAY | END 2022-07-28 23:59 | disposition home or self-care (01) | LOC: SPT 06:00 | PROVIDERS: PCP Family Medicine; Visit Provider Orthopaedic Surgery | DX: Z98.890 Other specified postprocedural states (principal) | CPT/HCPCS: 97110; 97150 ==

== ENCOUNTER 2023-04-25 17:14 | Emergency (ER) | payer MEDICARE, SELFPAY ==
[2023-04-25 17:43] VITALS: BP 136/78; PULSE 89; RESP 16; TEMP 36.9; O2SAT 96; BMI 25.8
--- NOTE | 2023-04-25 17:52 | XRR_ITS ---
PROCEDURE INFORMATION: Exam: XR Right Wrist Exam date and time: 04/25/2023 6:08 PM Age: 62 years old Clinical indication: Injury or trauma; Fall; Blunt trauma (contusions or hematomas); Wrist; Right TECHNIQUE: Imaging protocol: Radiologic exam of the right wrist. Views: 3 or more views. COMPARISON: CR ([facility], ) 10/31/2021 10:08 PM FINDINGS: Bones/joints: Comminuted displaced, angulated intra-articular distal radius fracture. Small corticated ossicle at the ulnar styloid in keeping with sequela of old trauma. Carpus and metacarpals are intact. Soft tissues: Soft tissue swelling. XR/XR wrist RT min 3V* [id number] IMPRESSION: Acute comminuted displaced and angulated intra-articular distal radius fracture.
--- NOTE | 2023-04-25 17:52 | XRR_ITS ---
PROCEDURE INFORMATION: Exam: XR Right Shoulder Exam date and time: 04/25/2023 6:10 PM Age: 62 years old Clinical indication: Injury or trauma; Fall; Blunt trauma (contusions or hematomas); Shoulder; Right TECHNIQUE: Imaging protocol: Radiologic exam of the right shoulder. Views: 2 or more views. COM[place]ISON[place] [id number] 02/02/2020 4:50 PM FINDINGS: Bones/joints: No evidence of acute fracture or dislocation. Chronic fracture deformities of multiple right ribs. Degenerative changes along the spine. Soft tissues: Unremarkable. XR/XR shoulder RT min 2V* [id number] IMPRESSION: No acute findings.
--- NOTE | 2023-04-25 18:03 | ED_ITS ---
HPI - Extremity Problem General: Chief complaint: Extremity Injury, Upper Stated complaint: hurt right arm Time Seen by Provider: 04/25/23 17:49 Source: patient Mode of arrival: ambulatory Limitations: no limitations History of Present Illness: 62-year-old male states that he tripped and fell and landed on his right wrist. He has right wrist pain with obvious deformity to his wrist. He states he also had surgery on his right shoulder roughly 1 year ago has had some slight pain in that shoulder. He denies any other injuries denies hitting his head denies neck pain. Associated symptoms: Deny chest pain, fever(s) or rash Review of Systems Const: Denies: fever(s), chills, body aches or change in appetite ENMT: Denies: throat pain or dental pain Card: Denies: chest pain Resp: Denies: dyspnea GI: Denies: abdominal pain, nausea, vomiting or diarrhea Musc: Reports: extremity pain; Denies: neck pain or back pain Skin/Breast: Denies: rash Neuro: Denies: headache(s) PFSH ED PFSH: Medical History Chronic right shoulder pain Dyslipidemia CAD (coronary artery disease) Neck pain Lumbar spine pain Lumbar radiculitis DDD (degenerative disc disease), lumbar Opioid contract exists Encounter for long-term use of opiate analgesic Surgical History S/P shoulder surgery left x2 S/P knee surgery right x2 Family History Other CAD (coronary artery disease) Social History Smoking and tobacco/nicotine status: light tobacco/nicotine user Second hand smoke exposure: No Alcohol intake: former Substance/Drug Use: never Lives independently: Yes Marital status: service: No Current occupational status: disabled Current gender identity: Male Katty/Mu-Ism: Tenriism Physical Exam Const: COMMON NORMALS: no acute distress, patient oriented x3 and healthy alfonso earing HENMT: COMMON NORMALS: normocephalic and atraumatic HEAD & SCALP: normocephalic and atraumatic Eye: COMMON NORMALS: conjunctivae normal CONJUNCTIVA: Yes conjunctivae normal Neck/C-Spine: COMMON NORMALS: full ROM and supple Chest: COMMONS NORMALS: normal inspection of the chest and normal palpation of entire chest wall Resp: COMMON NORMALS: normal respiratory effort GI: INSPECTION: Yes normal to inspection Extremity: NARRATIVE EXTREMITY EXAM: Obvious deformity to right wrist slight tenderness over right shoulder distal pulses sensation intact Neuro: COMMON NORMALS: patient oriented x3, moves all extremities and no focal motor deficits Psych: COMMON NORMALS: mental status grossly normal, Normal thought process present and cooperative THOUGHT PROCESS: Normal thought process present Skin: COMMON NORMALS: no rashes or lesions noted and no wounds GENERAL SKIN EXAM: no rashes or lesions noted Procedures Orthopedic Fracture Reduction Fracture #1: Time Out Performed: Yes Side: left Fracture Reduction Location: radius and ulna Analgesia: procedural sedation Technique: direct manipulation Post Reduction X-rays Demonstrate: anatomical reduction Post-reduction neuro exam: intact Post-reduction vascular exam: intact Splint Applied: Yes Patient Tolerated Procedure: well Procedural Sedation Indication: fracture/dislocation reduction ASA Class: I Time of Last PO Intake: 13:00 Preparation: service center assistant applied and pulse oximeter IV Propofol dose (mg): 100 Patient Tolerated Procedure: well Complications: none Course Vital Signs: Vital signs: Vital Signs Temperature 98.4 F 04/25/23 17:43 Pulse Rate 88 04/25/23 19:36 Respiratory Rate 20 H 04/25/23 19:36 Blood Pressure 141/83 04/25/23 19:36 Pulse Oximetry 93 04/25/23 19:36 Oxygen Delivery Me thod Room Air 04/25/23 19:36 MDM - Extremity (Nontraumatic) Medical Decision Making Patient presents here with a right wrist fracture that required reduction patient reduced here by me placed in a splint. Tolerated reduction well we will prescribe him pain meds he is to follow-up with orthopedics return if worsening. Medical Records I reviewed the patient's medical records. Lab Data Radiology Impressions Shoulder X-Ray 04/25/23 17:52 IMPRESSION: No acute findings. All radiology interpretation(s) finalized by discharge Discharge Plan Discharge Patient Disposition: Home Clinical Impression: Colles' fracture Qualifiers: Encounter type: initial encounter Fracture type: closed Laterality: right Qualified Code(s): S52.531A - Colles' fracture of right radius, initial encounter for closed fracture Condition: Stable Prescriptions: New hydrocodone-acetaminophen 5-325 mg tablet 1 tab PO Q6H PRN (Reason: pain) Qty: 14 0RF No Action atorvastatin 40 mg tablet 40 mg PO DAILY isosorbide mononitrate 30 mg tablet extended release 24 hr See Rx Instructions .ROUTE .COMPLEX Rx Instructions: pt states he stop taking this medication about 3 weeks ago-rx last filled 10/30/2019 90d/s 30mg qam ibuprofen 200 mg capsule 600 mg PO PRN Rx Instructions: pt states he may take four times a week diazepam 5 mg tablet 5 mg PO TID PRN (Reason: unknown) trazodone 50 mg tablet 50 - 100 mg PO BEDTIME aspirin 325 mg tablet 325 mg PO DAILY pantoprazole 40 mg tablet,delayed release (DR/EC) 40 mg PO BID methadone 10 mg tablet 10 mg PO Q6H 30 Days Qty: 120 0RF Rx Instructions: fill on or after 06/11/21 oxycodone 10 mg tablet 10 mg PO QID 30 Days Qty: 120 0RF Rx Instructions: fill on or after 07/10/21 BIO COMPLETE PO ferrous sulfate [iron] 325 mg (65 mg iron) tablet 325 mg PO DAILY cyanocobalamin (vitamin B-12) 25 mcg tablet 1,000 mcg PO DAILY methadone 10 mg tablet 10 mg PO Q12H Rx Instructions: fill on or after 07/10/21 oxycodone 10 mg tablet 10 mg PO QID PRN (Reason: pain) Rx Instructions: fill on or after 06/11/21 Max 20 mg daily vitamin B complex [B Complex-Vitamin B12] Tablet 1 tab PO DAILY ascorbic acid (vitamin C) 500 mg capsule PO DAILY ascorbate calcium (vitamin C) 500 mg tablet 500 mg PO DAILY polyethylene glycol 3350 [Miralax] 17 gram/dose powder 4 g PO DAILY nitroglycerin [Nitrostat] 0.4 mg tablet, sublingual 0.4 mg SUBLINGUAL Q5M PRN (Reason: Chest Pain) Qty: 25 5RF ondansetron 4 mg tablet,disintegrating 4 mg PO Q6H PRN (Reason: nausea and vomiting) Qty: 14 0RF metoprolol succinate 25 mg tablet extended release 24 hr 12.5 mg PO DAILY escitalopram oxalate 10 mg tablet 10 mg PO DAILY Rx Instructions: pt states he takes this medication-rx filled 12/07/2019 30d/s Discharge Orders: Discharge ED (Routine); Ordered 04/25/23 Ordered By: Gene Bellamy Referrals: Keya Ayala MD [Primary Care Provider] - Maday Bourne MD [Physician] - 1-3 days Discharge Diet: Advance as tolerated Discharge Activity: Resume usual activity Patient Instructions: Wrist Fracture in Adults (ED), Opioid Safety Coding Level of Care Code ED Patcher Helper for Renato Maya
[2023-04-25 18:08] VITALS: RESP 18; O2SAT 98
[2023-04-25] MEDS: ondansetron 2 mg/ML SDV 2 mL 4 MG IVP (18:08)
[2023-04-25] MEDS: morphine 4 mg/mL SDV 1 mL IVP ×2 (18:08→18:37)
[2023-04-25 18:37] VITALS: RESP 18; O2SAT 97
--- NOTE | 2023-04-25 19:04 | PC.NURSE ---
Report taken from JESIKA Landers at 1900.
[2023-04-25] MEDS: propofol 10 mg/mL SDV 20 mL 100 MG IVP (19:18)
--- NOTE | 2023-04-25 19:18 | XRR_ITS ---
PROCEDURE INFORMATION: Exam: XR Right Wrist Exam date and time: 04/25/2023 7:25 PM Age: 62 years old Clinical indication: Other: Post reduction TECHNIQUE: Imaging protocol: Radiologic exam of the right wrist. Views: 1 or 2 views. COMPARISON: CR ([facility] EXM, ) 04/25/2023 6:08 PM FINDINGS: Bones/joints: Reduced comminuted intra-articular distal radius fracture with improved alignment, now mildly displaced. Overlying splint material. Soft tissues: Soft tissue swelling. XR/XR wrist RT 2V [id number] IMPRESSION: Improved comminuted intra-articular distal radius fracture status post reduction.
--- NOTE | 2023-04-25 19:29 | PC.NURSE ---
REDUCTION PERFORMED BY DR PERKINS @1917 ON RIGHT UPPER EXTREMITY 100MG PROPOFOL IVP @1917 REDUCED @1919 SPLINTED SUGAR TONG @1922 SLING APPLIED @1927
--- NOTE | 2023-04-25 19:33 | PC.NURSE ---
Consent for reduction was signed by patient prior to reduction performed, witnessed by previous dayshift nurse during dayshift.
--- NOTE | 2023-04-25 19:35 | PC.NURSE ---
Remaining 100mg Propofol wasted in Pyxis, witnessed by JESIKA Clinton at this time.
[2023-04-25 19:36] VITALS: BP 141/83; PULSE 88; RESP 20; O2SAT 93
[2023-04-25] MEDS: HYDROcodone-acetaminophen 5-325 mg Tablet 2 TAB PO (20:22)
--- NOTE | 2023-04-25 20:30 | PC.NURSE ---
1 Hydrocodone tablet sent home with patient, witnessed by JESIKA Hurst.
--- NOTE | 2023-04-26 09:41 | DCPLANNER ---
Message was sent to ortho on 04/26/23 at 0941. Clinic to contact patient
== END 2023-04-25 20:31 | disposition home or self-care (01) ==
PROVIDERS: Emergency Provider Emergency Medicine; PCP Family Medicine
DX: S52.531A Colles' fracture of right radius, initial encounter for closed fracture (principal); Z79.82 Long term (current) use of aspirin; Z79.891 Long term (current) use of opiate analgesic; Z72.0 Tobacco use; E78.5 Hyperlipidemia, unspecified; I25.10 Atherosclerotic heart disease of native coronary artery without angina pectoris; W01.0XXA Fall on same level from slipping, tripping and stumbling without subsequent striking against object, initial encounter
CPT/HCPCS: 25605; 73030; 73100; 73110; 96374; 96375; 96376; 99285; J2270; J2405; J2704

== ENCOUNTER → 2023-05-01 11:20 | Outpatient (BNVA) | payer MEDICARE, SELFPAY | PROVIDERS: PCP Family Medicine; Referring Provider Emergency Medicine; Visit Provider Nurse Practitioner | DX: S52.561A Barton's fracture of right radius, initial encounter for closed fracture; W19.XXXA Unspecified fall, initial encounter; Y92.009 Unspecified place in unspecified non-institutional (private) residence as the place of occurrence of the external cause | CPT/HCPCS: 73110; 99214 ==

== ENCOUNTER 2023-06-29 11:32 | Outpatient (RCR) | payer MEDICARE, SELFPAY | END 2023-07-29 23:59 | disposition home or self-care (01) | LOC: SOT 11:32 | PROVIDERS: Visit Provider Orthopaedic Surgery Hand Surgery | DX: M25.531 Pain in right wrist (principal); Z47.89 Encounter for other orthopedic aftercare | CPT/HCPCS: 97022; 97110; 97140; 97165 ==

== ENCOUNTER 2023-08-02 12:53 | Outpatient (RCR) | payer MEDICARE, SELFPAY | END 2023-08-28 23:59 | disposition home or self-care (01) | LOC: SOT 12:53 | PROVIDERS: Visit Provider Orthopaedic Surgery Hand Surgery | DX: M25.531 Pain in right wrist (principal) | CPT/HCPCS: 97022; 97110; 97140 ==

== ENCOUNTER → 2023-08-16 09:21 | Outpatient (BNVA) | payer MEDICARE, SELFPAY | PROVIDERS: Visit Provider Specialist | DX: M25.531 Pain in right wrist (principal); G56.01 Carpal tunnel syndrome, right upper limb; G56.20 Lesion of ulnar nerve, unspecified upper limb | CPT/HCPCS: 95911 ==

== ENCOUNTER 2023-08-29 06:00 | Outpatient (RCR) | payer MEDICARE, SELFPAY | END 2023-09-28 23:59 | disposition home or self-care (01) | LOC: SOT 06:00 | PROVIDERS: Visit Provider Orthopaedic Surgery Hand Surgery | DX: Z47.89 Encounter for other orthopedic aftercare (principal); M25.531 Pain in right wrist | CPT/HCPCS: 97022; 97110; 97140; G0283 ==

== ENCOUNTER → 2024-03-25 15:04 | Outpatient (BNVA) | payer MEDICARE, SELFPAY | PROVIDERS: PCP Family Medicine; Visit Provider Internal Medicine Cardiovascular Disease | DX: R07.9 Chest pain, unspecified (principal); I25.119 Atherosclerotic heart disease of native coronary artery with unspecified angina pectoris; E78.5 Hyperlipidemia, unspecified; K21.9 Gastro-esophageal reflux disease without esophagitis | CPT/HCPCS: 93005; 99214 ==

== ENCOUNTER 2024-04-14 08:53 | Outpatient (CLI) | payer MEDICARE, SELFPAY ==
--- NOTE | 2024-04-14 09:00 | XRR_ITS ---
PROCEDURE INFORMATION: Exam: XR Right Knee Exam date and time: 04/14/2024 9:08 AM Age: 63 years old Clinical indication: Knee; Right; Patient HX: X2 1/2 weeks riding horses with no injury or initial pain, later in the day severe medial and deep joint pain that has persisted; Additional info: RT knee pain TECHNIQUE: Imaging protocol: Radiologic exam of the right knee. Views: 3 views. COMPARISON: CR XR knee RT 3V* [id number] 10/29/2020 8:52 AM FINDINGS: Bones/joints: No fracture or dislocation is appreciated. There is mild joint space narrowing involving the medial and patellofemoral compartments. There are small medial, patellofemoral and tibial spine osteophytes. Small ossification projecting from the medial femoral condyle may reflect an old MCL injury. Bony mineralization is normal. There is no evidence of a significant joint effusion. Soft tissues: Normal. XR/XR knee RT 3V* [id number] IMPRESSION: 1. [id number] osteoarthritis. 2. Possible old MCL injury.
== END 2024-04-14 08:54 | disposition home or self-care (01) ==
PROVIDERS: PCP Family Medicine; Visit Provider Family Medicine
DX: M17.11 Unilateral primary osteoarthritis, right knee (principal); M25.761 Osteophyte, right knee
CPT/HCPCS: 73562

== ENCOUNTER → 2024-10-01 13:39 | Outpatient (BNVA) | payer MEDICARE, SELFPAY | PROVIDERS: PCP Family Medicine; Visit Provider Emergency Medicine | DX: R52 Pain, unspecified (principal) | CPT/HCPCS: 73630 ==

== ENCOUNTER → 2025-03-30 14:12 | Outpatient (BNVA) | payer MEDICARE, SELFPAY | PROVIDERS: PCP Nurse Practitioner Family; Visit Provider Internal Medicine Cardiovascular Disease | DX: I25.10 Atherosclerotic heart disease of native coronary artery without angina pectoris (principal); I10 Essential (primary) hypertension; E78.5 Hyperlipidemia, unspecified; K21.9 Gastro-esophageal reflux disease without esophagitis; Z87.891 Personal history of nicotine dependence | CPT/HCPCS: 99214 ==